=== PATIENT | female | born 1935 | race Caucasian/White ===

== ENCOUNTER 2019-02-11 15:00 | Observation (INO) | payer MEDICARE ==
[~2019-02-11] VITALS: Ht 149.9 cm; Wt 55.1 kg
[~2019-02-11 15:00] MED LIST: ALLEGRA ALLERG180 MG PO; AMLODIPINE BESYL5 MG PO; C-500500 MG PO; CALCIUM500 MG PO; COMBIVENT INH14.7 GM INH; COUMADIN5 MG PO; FORTEO2.4 ML SQ; LASIX20 MG PO; METOPROLOL SUCC25 MG PO; SIMVASTATIN20 MG PO; TEMAZEPAM15 MG PO; VITAMIN D32000 UNI1 PO; WARFARIN SODIU2.5 MG PO
[2019-02-11] MEDS ORDERED: MIDAZOLAM HCL 2 MG/2 ML VIAL ONE (15:44)
[2019-02-11] MEDS ORDERED: FENTANYL CITRATE/PF 100MCG/2 ML INJ ONE (15:44)
[2019-02-11 16:17] LABS: BASOPHILS % 0.4 % (0.0-1.0); EOSINOPHILS # (AUTO) 0.4 (0.0-0.4); EOSINOPHILS % 5.4 % (0.0-6.0); HEMATOCRIT 38.2 % (34.2-44.1); HEMOGLOBIN 12.6 g/dL (12.0-16.0); LYMPHOCYTES # (AUTO) 1.4 (1.0-3.2); LYMPHOCYTES % 18.7 % (18.0-39.1); MEAN CORPUSCULAR HEMOGLOBIN 31.5 pg (28-32); MEAN CORPUSCULAR VOLUME 95.5 fL (81-99); MONOCYTES # (AUTO) 0.9 (0.2-0.8); MONOCYTES % 12.6 % (4.4-11.3); NEUTROPHILS # (AUTO) 4.5 (2.1-6.9); NEUTROPHILS % 62.6 % (38.7-80.0); PLATELET COUNT 306 x10e3/uL (140-360); RED CELL DISTRIBUTION WIDTH 12.3 % (11.7-14.4)
[2019-02-11 16:22] LABS: INR 1.6; PROTHROMBIN TIME 19.7 seconds (11.9-14.5)
[2019-02-11 16:23] LABS: PARTIAL THROMBOPLASTIN TIME 43.9 seconds (23.8-35.5)
[2019-02-11 16:29] LABS: ALBUMIN/GLOBULIN RATIO 0.7 (0.8-2.0); ALKALINE PHOSPHATASE 109 IU/L (40-150); BLOOD UREA NITROGEN 12 mg/dL (7-26); BUN/CREATININE RATIO 14 (6-25); CALCIUM 9.7 mg/dL (8.4-10.2); CARBON DIOXIDE 26 mmol/L (22-29); CHLORIDE 99 mmol/L (98-107); CREATINE KINASE 40 IU/L (29-168); CREATININE, SERUM 0.87 mg/dL (0.57-1.11); EST GLOMERULAR FILTRATION RATE > 60 ML/MIN (60-); GLUCOSE 188 mg/dL (74-118); SODIUM 137 mmol/L (136-145)
[2019-02-11 16:39] LABS: ALANINE AMINOTRANSFERASE < 6 IU/L (0-55)
--- NOTE | 2019-02-11 16:54 | NUR ---
LATE ENTRY: PATIENT TO ROOM 9 AT 1520, PLACED IN GOWN AND ON MONITOR. PATIENT IN SVT WITH A RATE OF 220. VAGAL MANEUVERS UNSUCCESSFUL, MD NOTIFIED OF RATE. PATIENT ALERT AND ORIENTED, IN NO ACUTE DISTRESS. 1530 - EKG DONE AND GIVEN TO MD; 20G IV LINE STARTED TO LEFT AND RIGHT HANDS. BLOOD DRAWN AND LABELLED BEDSIDE 1535 - PATIENT PLACED ON LIFEPACK MONITOR WITH PADS 1543 - PATIENT GIVEN 2 MG VERSED 1544 - PATIENT GIVEN 50 MCG FENTANYL 1546 - PATIENT GIVEN SYNCHRONIZED SHOCK AT 100J; PATIENT CONVERTED TO SINUS RHYTHM WITH A RATE OF 83.
--- NOTE | 2019-02-11 17:04 | Diagnostic Imaging Report ---
EXAMINATION: CHEST SINGLE (PORTABLE) INDICATION: Chest pain COMPARISON: None FINDINGS: TUBES and LINES: EKG leads overlie the chest. LUNGS: The lung volumes are normal. No focal consolidation or pulmonary edema. PLEURA: No pleural effusion or pneumothorax. HEART AND MEDIASTINUM: The cardiomediastinal silhouette is normal in size and contour. Atherosclerotic calcifications of the thoracic aorta. Incidental note of tracheal calcification. BONES AND SOFT TISSUES: No acute fracture or dislocation. Postoperative findings of open reduction internal fixation of right proximal humerus. UPPER ABDOMEN: No free air under the diaphragm. IMPRESSION: No focal pneumonia or pulmonary edema. Signed by: Carlos Diaz MD on 02/11/2019 5:00 PM
--- OUTSIDE RECORDS SUMMARY | 2019-02-11 17:40 | XMS REPORT ---
Author Author [facility] Address Unknown Phone Unavailable Care Team Providers Care Manager Merchandising Name Role Phone Юлия ADKINS Unavailable Unavailable Problems This patient has no known problems. Allergies, Adverse Reactions, Alerts This patient has no known allergies or adverse reactions. Medications This patient has no known medications. Results Test Description Test Time Test Comments Text Results Atomic Results Result Comments CHEST SINGLE (PORTABLE) 2019-02-11 16:57:00 [place] [id number] Patient Name: SHWETA PARKS MR #: [id number] : 1935 Age/Sex: 83/F Req #: [id number] Adm Physician: Ordered by: IVIS ADKINS MD Report #: [id number] Location: ER Room/Bed: Procedure: [id number] DX/CHEST SINGLE (PORTABLE) Exam Date: 02/11/19 Exam Time: 1612 REPORT STATUS: Signed EXAMINATION: CHEST SINGLE (PORTABLE) I NDICATION: Chest pain COMPARISON: None FINDINGS: TUBES and LINES: EKG leads overlie the chest. LUNGS: The lung volumes are normal. No focal consolidation or pulmonary edema. PLEURA: No pleural effusion or pneumothorax. HEART AND MEDIASTINUM: The cardiomediastinal silhouette is normal in size and contour. Atherosclerotic calcifications of the thoracic aorta. Incidental note of tracheal calcification. BONES AND SOFT TISSUES: No acute fracture or dislocation. Postoperative findings of open reduction internal fixation of right proximal humerus. UPPER ABDOMEN: No free air under the diaphragm. IMPRESSION: No focal pneumonia or pulmonary edema. Signed by: John Diaz MD on 02/11/2019 5:00 PM Dictated By: JOHN DIAZ MD 99 Transcribed By: ASAD on 02/11/191699 COPY TO: IVIS ADKINS MD
[2019-02-11] MEDS ORDERED: METOPROLOL TARTRATE 25 MG TAB PO SCH (18:00)
[2019-02-11] MEDS: ASPIRIN 325 MG TAB EC PO SCH (18:06)
[2019-02-11] MEDS ORDERED: WARFARIN SOD 5 MG TAB PO ONE (19:00)
[2019-02-11] MEDS ORDERED: IPRATROPIUM BROMIDE 0.02% 2.5 ML NEB NEB PRN (19:00)
[2019-02-11] MEDS ORDERED: METOPROLOL TARTRATE 25 MG TAB PO ONE (19:00)
--- NOTE | 2019-02-11 19:51 | NUR ---
PT RESTING COMFORTABLY AT THIS TIME, DENIES PAIN/DISCOMFORT. VSS. CARE PLAN DISCUSSED WITH PT, CALL LIGHT WITHIN REACH, ENCOURAGED TO CALL FOR ASSISTANCE. AWAITING BED ON OBS UNIT.
--- NOTE | 2019-02-11 20:00 | NUR ---
patient is a new admit that arrived via stretcher. patient is awake and talking. patient has a telemetry box. patient has been assisted into the bed. bed is in the lowest position and call ty is within reach. will continue to monitor patient.
[2019-02-11 21:00] VITALS: BP 137/74
[2019-02-11] MEDS ORDERED: SIMVASTATIN 20 MG TAB PO SCH (21:00)
[2019-02-11] MEDS ORDERED: TEMAZEPAM 15 MG CAP PO SCH (21:00)
--- NOTE | 2019-02-11 21:11 | NUR ---
REPORT CALLED TO THUY HAMMOND. PT TAKEN OVER TO FLOOR ON TELE BOX NUMBER [phone].
[2019-02-12] VITALS: BP 139/63
[2019-02-12 02:23] LABS: CREATINE KINASE MB 4.2 ng/mL (0-5.0)
[2019-02-12 04:00] VITALS: BP 146/63
[2019-02-12 05:41] LABS: BASOPHILS % 0.4 % (0.0-1.0); EOSINOPHILS # (AUTO) 0.6 (0.0-0.4); EOSINOPHILS % 11.6 % (0.0-6.0); HEMATOCRIT 32.1 % (34.2-44.1); HEMOGLOBIN 10.1 g/dL (12.0-16.0); LYMPHOCYTES # (AUTO) 1.5 (1.0-3.2); LYMPHOCYTES % 29.4 % (18.0-39.1); MEAN CORPUSCULAR HGB CONC 31.5 g/dL (31-35); MONOCYTES # (AUTO) 0.7 (0.2-0.8); MONOCYTES % 13.5 % (4.4-11.3); NEUTROPHILS # (AUTO) 2.3 (2.1-6.9); NEUTROPHILS % 44.9 % (38.7-80.0); PLATELET COUNT 230 x10e3/uL (140-360); RED BLOOD COUNT 3.26 x10e6/uL (3.6-5.1); RED CELL DISTRIBUTION WIDTH 12.5 % (11.7-14.4)
[2019-02-12 05:45] LABS: MEAN CORPUSCULAR VOLUME 98.5 fL (81-99)
[2019-02-12 05:56] LABS: INR 2.06; PROTHROMBIN TIME 23.9 seconds (11.9-14.5)
--- NOTE | 2019-02-12 05:59 | NUR ---
CONSULTED PHYSICIAN NOTIFIED OF ROUTINE CONSULTATION.
[2019-02-12 06:02] LABS: ANION GAP 8.9 mmol/L (8-16); BLOOD UREA NITROGEN 8 mg/dL (7-26); BUN/CREATININE RATIO 13 (6-25); CALCIUM 8.6 mg/dL (8.4-10.2); CARBON DIOXIDE 30 mmol/L (22-29); CHLORIDE 105 mmol/L (98-107); EST GLOMERULAR FILTRATION RATE > 60 ML/MIN (60-); GLUCOSE 86 mg/dL (74-118); POTASSIUM 3.9 mmol/L (3.5-5.1); SODIUM 140 mmol/L (136-145)
[2019-02-12 06:06] LABS: CHOL/HDL RATIO 2.9 (3.0-3.6)
[2019-02-12 06:25] LABS: THYROID STIMULATING HORMONE 0.762 uIU/mL (0.350-4.940)
--- NOTE | 2019-02-12 07:12 | NUR ---
REPORT GIVEN TO DAY NURSE. PATIENT IS RESTING COMFORTABLY IN BED. BED IS IN LOWEST POSITION AND CALL LIGHT IS WITHIN REACH.
[2019-02-12 08:19] VITALS: BP 126/58
[2019-02-12 08:34] VITALS: BP 126/58
[2019-02-12] MEDS ORDERED: LORATADINE 10 MG TAB PO SCH (09:00)
[2019-02-12] MEDS ORDERED: METOPROLOL TARTRATE 50 MG TAB PO SCH (09:00)
[2019-02-12] MEDS ORDERED: NON-FORMULARY MEDICATION (Fexofenadine Hcl (Allegra Allergy) 180 MG) PO SCH (09:00)
[2019-02-12] MEDS ORDERED: TERIPARATIDE SC SCH ×2 (09:00)
[2019-02-12] MEDS: ASPIRIN 325 MG TAB EC PO SCH (09:12)
[2019-02-12 11:33] LABS: CREATINE KINASE MB 2.9 ng/mL (0-5.0)
[2019-02-12 11:37] VITALS: BP 106/53
[2019-02-12] MEDS ORDERED: DRONEDARONE 400 MG TAB PO SCH (12:45)
[2019-02-12] MEDS ORDERED: MULTAQ 400MG T400 MG PO ×2 (13:08→13:12)
--- NOTE | 2019-02-12 15:09 | Consultation ---
DATE OF CONSULTATION: 02/12/2019 Cardiology Consultation REASON FOR CONSULTATION: Paroxysmal atrial fibrillation. HISTORY OF PRESENT ILLNESS: Ms. Greene is an 83-year-old lady with past medical history of hypertension essential, COPD, former smoker, utilizing home oxygen at night, prior history of paroxysmal atrial fibrillation diagnosed about 10 years ago, who presents to this institution as a transfer from freestanding emergency room. The patient has been under a lot of stress within the last week, selling her house and moving to a senior assisted living facility. She has been having recurrent episodes of subjective palpitations and feeling that her heart is going to pound out of her chest. These episodes ranged from minutes to hours at a time and over the last three days have become increasingly frequent. Upon arrival at the freestanding emergency room, she was noted to be in atrial fibrillation with a rapid ventricular response with heart rates up to the 200s range and emergency room physician there due to instability did an emergent DC cardioversion, which restored her back into sinus rhythm. She is transferred here for further care and management. While here, she has been largely pain free. Serial biomarkers are strongly negative with troponin going from 0.028 to 0.035 to 0.030. She does report a remote history of cardiac catheterization back in 2012, where she was noted to have angiographically minimal disease and this was due to similar presentation with tachycardia-induced troponin leak. PAST MEDICAL HISTORY: 1. COPD. 2. Hypertension, essential. 3. Atrial fibrillation diagnosed 10 years ago, paroxysmal, on anticoagulant therapy. 4. History of heart catheterization in 2012 with minimal disease. PAST SURGICAL HISTORY: 1. History of hysterectomy. 2. History of right hip surgery. 3. History of right shoulder surgery. 4. History of ankle surgeries bilaterally. FAMILY HISTORY: Mother in her 30s of unknown causes. Father later on in life. The patient denies any premature family history of coronary artery disease. SOCIAL HISTORY: She is a former smoker, quit 20 years ago. Denies any alcohol or illicit drug use. ALLERGIES: INCLUDE CODEINE. HOME MEDICATIONS: Include Combivent inhaler daily, vitamin C supplement, calcium supplement, vitamin D supplement, Nella 180 mg daily, Lasix 20 mg daily, Toprol-XL 25 mg daily, Zocor 20 mg at bedtime, temazepam 7.5 mg at bedtime, Forteo 20 mcg daily, and Coumadin 5 mg alternating with 7.5 mg every other day. REVIEW OF SYSTEMS: GENERAL: Denies any fevers, chills, or any weight changes. HEENT: No headaches, visual complaints, sore throat, or stuffy nose. RESPIRATORY: Denies any pleuritic chest pain. Has exertional fatigue class 3 at baseline with nonproductive cough which is chronic. CARDIOVASCULAR: Palpitations as per HPI. GI: Denies any abdominal pain, bright red blood per rectum, melena, or hematemesis. HEMATOLOGY: Positive for easy bruising. : Denies any dysuria. Does have urinary frequency. MUSCULOSKELETAL: Has severe arthritis in all her extremities. ENDOCRINE: Denies any heat or cold intolerance. NEUROLOGIC: Denies any focal weakness, numbness, tingling, seizures, headache, history of TIA or strokes. Remainder of review of systems is negative, otherwise mentioned. PHYSICAL EXAMINATION: VITAL SIGNS: Height of 59 inches, weight of 121 pounds, BMI is 24.5. Temperature of 96.3, pulse of 57, respiratory rate of 18, blood pressure of 126/58, and O2 saturation 98% on 2 L nasal cannula. GENERAL: Well-nourished, well-developed, frail lady, who is currently in no apparent distress. HEENT: Normocephalic, atraumatic. Pupils are equal, round, and reactive to light. Extraocular movements are intact. Oropharynx is clear. NECK: No elevation of jugular venous pulsation. No carotid bruits. CARDIOVASCULAR: Bradycardic. Normal S1, S2. Soft 2/6 systolic murmur at left lower sternal border. LUNGS: With symmetric expansion with poor air flow throughout lung stone compatible with COPD type changes. ABDOMEN: Soft, nontender, nondistended. Normoactive bowel sounds. No hepatosplenomegaly. BACK: No costovertebral angle tenderness. EXTREMITIES: Warm with 2+ bilateral femoral pulses, 2+ bilateral pedal pulses, and 1+ bilateral radial pulses. NEUROLOGIC: Cranial nerves 2 through 12 are intact. Strength is 5/5 and she appears nonfocal. PSYCH: Normal fluent speech. Appropriate affect. No anxiety or delusions. LABORATORY DATA: White count of 5.1, hemoglobin of 10.1, hematocrit of 32.1, platelets of 238. Sodium 140, potassium 3.9, chloride 105, bicarb 30, BUN 8, creatinine 0.6, glucose of 86, calcium of 8.6. Troponin went from 0.028 to 0.035 to 0.030. Lipid profile shows HDL of 47, LDL of 77, triglycerides of 59. TSH 0.762. INR is 2.06. EKG reveals normal sinus rhythm, normal axis, left axis deviation, no significant ST-T wave changes. Telemetry review from event reveals atrial fibrillation with rapid ventricular response with heart rates in the 200s and successfully DC cardioverted back to sinus rhythm. DIAGNOSES: 1. Symptomatic palpitations secondary to paroxysmal atrial fibrillation status post emergent DC cardioversion by emergency room physician at an outside institution. 2. Hypertension, essential. 3. Hypercholesterolemia. 4. Chronic obstructive pulmonary disease, former smoker, on home oxygen at night. PLAN/RECOMMENDATIONS: 1. From a cardiovascular standpoint, we had an extremely long discussion in terms of her clinical condition, which is paroxysmal atrial fibrillation resulting in symptomatic palpitations with atrial fibrillation with rapid ventricular response. This does not confer the presence of any ischemic disease and has had definitive ischemic evaluation back in 2012 with a heart catheterization with minimal plaquing and has ruled out for PR with serial cardiac enzymes. 2. We will implement a rhythm control strategy due to her symptomatic state and attempt with Multaq 400 mg b.i.d. We are purposely trying to avoid amiodarone due to toxicity profile. 3. Her INR today is therapeutic at a goal between 2 to 3. We will continue anticoagulant therapy. 4. We have introduced the concept that the patient may have also underlying tachybrady syndrome and is to monitor for episodes of slow heart rate as an outpatient. 5. Aggressive risk factor modification, medical therapy. 6. For the time being, I cannot find any particular provokers for her recent recurrent spells outside of perhaps some emotional stresses related to recent moving from her home to a long term facility. 7. Okay from a cardiovascular standpoint to go when okay by primary team. MD BLANE Hansen/FLORECITA /[id number]
--- NOTE | 2019-02-13 05:02 | Discharge Summary ---
PRIMARY CARE DOCTOR: Dr. Del Hampton. SECOND HELPER: Dr. Hugo, Cardiology. PROCEDURES/STUDIES PERFORMED: Cardioversion. FINAL DIAGNOSES: Atrial fibrillation with rapid ventricular response. SECONDARY DIAGNOSES: 1. Possible chronic obstructive pulmonary disease. 2. Hypertension. 3. Parathyroid disorder. 4. Dyslipidemia. HISTORY: Per [facility] HOSPITAL COURSE: The patient was shocked in the ER and converted back to sinus. The patient was monitored overnight, continued to be in sinus. An initial INR was 1.6, on the date of admission is 2.06. The patient's TSH is normal. The patient was evaluated by Cardiology, who recommended adding Multaq to the regimen and if this does not help then she will need to see in bottom liquor attendant, ict project manager. I have relayed this message to her primary care doctor, whom she will follow up in a week. The patient was seen and examined today. CONDITION ON DISCHARGE: Improved. DISCHARGE MEDICATIONS: Please see medication reconciliation form. MD BRANT Jacob/FLORECITA /[id number] cc: [facility]
== END 2019-02-12 15:00 | disposition home or self-care (01) ==
LOC: ER 15:00 → ERHOLD 17:26 → IMCU 21:49
PROVIDERS: ADMIT Internal Medicine; ATTEND Internal Medicine
DX: I48.0 Paroxysmal atrial fibrillation (principal); R00.2 Palpitations; J44.9 Chronic obstructive pulmonary disease, unspecified; I25.2 Old myocardial infarction; I47.1 Supraventricular tachycardia; Z88.5 Allergy status to narcotic agent; I10 Essential (primary) hypertension; Z87.891 Personal history of nicotine dependence; Z79.01 Long term (current) use of anticoagulants; E78.00 Pure hypercholesterolemia, unspecified; E21.5 Disorder of parathyroid gland, unspecified; E78.5 Hyperlipidemia, unspecified
CPT/HCPCS: 36415; 71045; 80048; 80053; 80061; 82550 ×2; 82553 ×2; 84443; 84484 ×2; 85025 ×2; 85610 ×2; 85730; 92960; 93005; 93306; 99284; G0378 ×2; J2250; J3010

== ENCOUNTER 2019-04-17 08:32 | Inpatient (IN) | payer MEDICARE ==
[~2019-04-17] VITALS: Ht 147.3 cm; Wt 51.7 kg
[2019-04-17] VITALS (8 sets, daily range): BP systolic 101–150; BP diastolic 72–125
[~2019-04-17 08:32] MED LIST changes: +MULTAQ 400MG T400 MG PO
--- OUTSIDE RECORDS SUMMARY | 2019-04-17 08:35 | XMS REPORT | Clinical Summary ---
Author Author Lebron Druze Organization [facility] Address Unknown Phone Unavailable Care Team Providers Care Commercial Escrow Officer Name Role Phone Del Hampton MD PCP Allergies Comments Active Allergy Reactions Severity Noted Date Levofloxacin 02/19/2019 Medications End Date Status Medication Sig Dispensed Refills Start Date 02/22/2019 acetaminophen-codeine Take 1 tablet 10 tablet 0 (TYLENOL WITH CODEINE #3) by mouth 9 300-30 mg per tablet every 8 (eight) hours as needed for moderate pain for up to 3 days. Active Problems Not on file Encounters Care Team Description Date Type Specialty Mian Carlton MD Fall, initial encounter (Primary Dx); Injury of head, initial encounter; Right hip pain; Hypertensive urgency; Hip strain, right, initial encounter; Contusion of forehead, initial encounter 02/19/2019 Emergency Emergency Medicine - 02/20/2019 after 04/16/2018 Social History Date Tobacco Use Types Packs/Day Years Used Never Smoker Smokeless Tobacco: Never Used Drinks/Week oz/Week Comments Alcohol Use Never Alcohol Habits Answer Date Recorded How often do you have a drink containing alcohol? Never 02/19/2019 How many drinks containing alcohol do you have on Not asked a typical day when you are drinking? How often do you have six or more drinks on one Not asked occasion? Sex Assigned at Date Recorded Not on file Industry Job Start Date Occupation Not on file Not on file Not on file Travel End Travel History Travel Start No recent travel history available. Last Filed Vital Signs Reading Time Taken Comments Vital Sign 149/63 02/20/2019 12:07 AM CDT Blood Pressure 60 02/20/2019 12:07 AM CDT Pulse 36.8 C (98.2 F) 02/20/2019 12:07 AM CDT Temperature 19 02/20/2019 12:07 AM CDT Respiratory Rate 94% 02/20/2019 12:07 AM CDT Oxygen Saturation - - Inhaled Oxygen Concentration 53.1 kg (117 lb) 02/19/2019 9:15 PM CDT Weight 149.9 cm (4' 11") 02/19/2019 9:15 PM CDT Height 23.63 02/19/2019 9:15 PM CDT Body Mass Index Plan of Treatment Health Maintenance Due Date Last Done Comments SHINGLES VACCINES (#1) 1984 INFLUENZA VACCINE 03/04/2019 08/13/2018, 05/15/2016, 07/12/2015, Additional history exists 65+ PNEUMOCOCCAL VACCINE Completed 01/02/2015, 10/04/2013 Procedures Comments Procedure Name Priority Date/Time Associated Diagnosis ESTIMATED GFR STAT 02/19/2019 10:16 PM CDT COMPREHENSIVE METABOLIC STAT 02/19/2019 PANEL 10:16 PM CDT HC COMPLETE BLD COUNT STAT 02/19/2019 W/AUTO DIFF 10:16 PM CDT PARTIAL THROMBOPLASTIN STAT 02/19/2019 TIME (PTT) 10:16 PM CDT PROTHROMBIN TIME WITH INR STAT 02/19/2019 10:[address] PELVIS WO CONTRAST STAT 02/19/2019 10:[address] HEAD WO CONTRAST STAT 02/19/2019 10:[address] CERVICAL SPINE WO STAT 02/19/2019 CONTRAST 10:14 PM CDT XR HIP 2-3 VIEWS RIGHT STAT 02/19/2019 9:50 PM CDT XR CHEST 1 VW PORTABLE STAT 02/19/2019 9:50 PM CDT ECG 12-LEAD STAT 02/19/2019 9:21 PM CDT ECG ED PRELIMINARY Routine 02/19/2019 INTERPRETATION 9:19 PM CDT after 04/16/2018 Results * Estimated GFR (02/19/2019 10:16 PM CDT) [facility] Estimated GFR 68 mL/min/1.73 m2 [place] Comment: GLENIS BOSWELL [facility] rpretation G1 >=90 Normal or high G2 60-89Mildly decreased [id number] Mildly to moderately decreased F6c87-51 Moderately to severely decreased G4 15-29Severely decreased G5 <15Kidney failure The eGFR was calculated using the Chronic Kidney Disease Epidemiology Collaboration (CKD-EPI) equation. Interpretation is based on recommendations of the National Kidney Foundation-Kidney Disease Outcomes Quality Initiative (NKF-KDOQI) published in 2014. Specimen Plasma specimen Performing Organization Address [facility] Phone Number [address] [place] [address] * Partial thromboplastin time, activated (02/19/2019 10:16 PM CDT) [facility] PTT 48.8 (H) 23.0 - 36.0 sec [place] Comment: GLENIS BOSWELL PTT therapeutic range for [facility] unfractionated heparin is 61.0-112.0 seconds which corresponds to Anti-Xa 0.3-0.7 U/ml. Specimen Blood Performing Organization Address [facility] Phone Number [facility] DEPARTMENT [address] [place] [address] PATHOLOGY [facility] [place] [address] * Prothrombin time with INR (02/19/2019 10:16 PM CDT) [facility] Prothrombin 26.7 (H) 11.5 - 14.5 sec [place] time GLENIS BOSWELL [facility] [place] INR 2.5 [place] Comment: GLENIS BOSWELL The International Normalized [facility] [place] Ratio (INR) is a therapeutic monitoring tool for patients who are stable on oral anticoagulant therapy. An INR of 2.0-3.0 is suggested for deep vein thrombosis/pulmonary embolism. Specimen Blood Performing Organization Address [facility] Phone Number [facility] DEPARTMENT [address] [place] [address] PATHOLOGY AND [facility] [place] [address] * CBC with platelet and differential (02/19/2019 10:16 PM CDT) WBC 11.12 (H) 4.50 - 11.00 k/uL [facility] RBC 3.93 (L) 4.20 - 5.50 m/uL [facility] HGB 12.1 12.0 - 16.0 g/dL [facility] HCT 39.2 37.0 - 47.0 % [facility] MCV 99.7 82.0 - 100.0 fL [facility] MCH 30.8 27.0 - 34.0 pg [facility] MCHC 30.9 (L) 31.0 - 37.0 g/dL [facility] RDW - SD 47.4 37.0 - 55.0 fL [facility] MPV 11.0 8.8 - 13.2 fL [facility] Platelet count 241 150 - 400 k/uL [facility] Nucleated RBC 0.00 /100 WBC [facility] Neutrophils 79.3 (H) 39.0 - 69.0 % [facility] Lymphocytes 8.1 (L) 25.0 - 45.0 % [facility] Monocytes 6.7 0.0 - 10.0 % [facility] Eosinophils 4.7 0.0 - 5.0 % [facility] Basophils 0.4 0.0 - 1.0 % [facility] Specimen Blood Performing Organization Address City/State/Zipcode [place] [address] [place] [address] PATHOLOGY AND GENOMIC MEDICINE [facility] [address] [place] [address] * Comprehensive metabolic panel (02/19/2019 10:16 PM CDT) Sodium 143 135 - 148 mEq/L [facility] Potassium 4.7 3.5 - 5.0 mEq/L [facility] Chloride 99 98 - 112 mEq/L [facility] CO2 29 24 - 31 mEq/L [facility] Anion gap 15@ANIO 7 - 15 mEq/L [facility] BUN 19 8 - 23 mg/dL [facility] Creatinine 0.80 0.50 - 0.90 mg/dL [facility] Glucose 109 (H) 65 - 99 mg/dL [facility] Calcium 9.6 8.8 - 10.2 mg/dL [facility] Protein 7.4 6.3 - 8.3 g/dL [place] Comment: [facility] 4.6-7.0 g/dL 1 week 4.4-7.6 g/dL 7 months-1year 5.1-7.3 g/dL 1-2 years5.6-7 .5 g/dL >3 years6.0-8 .0 g/dL 18-150 6.3-8.3 g/dL Albumin 3.6 3.5 - 5.0 g/dL [facility] A/G ratio 0.9 0.7 - 3.8 [facility] Alkaline 116 (H) 35 - 104 U/L [place] phosphatase [facility] AST 27 10 - 35 U/L [facility] ALT 22 5 - 50 U/L [facility] Total bilirubin 0.6 0.0 - 1.2 mg/dL [facility] Specimen Plasma specimen Performing Organization Address City/State/Zipcode Phone [place] [address] [place] [address] PATHOLOGY AND GENOMIC MEDICINE [facility] [address] * CT Pelvis Wo Contrast (02/19/2019 10:14 PM CDT) Specimen Narrative Performed At EXAMINATION:CT PELVIS WO CONTRAST [facility] CLINICAL HISTORY:fallR hip pain TECHNIQUE:Multiple axial images of the pelvis were obtained without intravenous contrast. The lack of intravenous contrast reduces sensitivity of detecting solid organ disease. Sagittal and coronal computerized reformatted images were also obtained. CT imaging was performed with iterative reconstruction techniques and/or automated exposure control to reduce radiation dose. COMPARISON:To a plain film from earlier in the day IMPRESSION: 1.The bones are moderately osteopenic. Internal fixation screws are noted across the left proximal femur. 2.There is no evidence of acute fracture or dislocation. [facility]-[id number] Procedure Note Interface, Radiology Results Incoming - 02/19/2019 10:19 PM CDT EXAMINATION: CT PELVIS WO CONTRAST CLINICAL HISTORY: fall R hip pain TECHNIQUE: Multiple axial images of the pelvis were obtained without intravenous contrast. The lack of intravenous contrast reduces sensitivity of detecting solid organ disease. Sagittal and coronal computerized reformatted images were also obtained. CT imaging was performed with iterative reconstruction techniques and/or automated exposure control to reduce radiation dose. COMPARISON: To a plain film from earlier in the day IMPRESSION: 1. The bones are moderately osteopenic. Internal fixation screws are noted across the left proximal femur. 2. There is no evidence of acute fracture or dislocation. [facility]-[id number] Performing Organization Address City/State/Zipcode Phone Number [facility] [address] [place] [address] * CT Head Wo Contrast (02/19/2019 10:14 PM CDT) Specimen Narrative Performed At EXAMINATION:CT HEAD WO CONTRAST [facility] CLINICAL HISTORY:fallhead injuryon coumadin COMPARISON:CT head 07/14/2014 TECHNIQUE: Noncontrast head CT performed using radiation dose reduction techniques.Technical factors are evaluated and adjusted to ensure appropriate moderation of exposure.Automated dose management technology is applied to adjust radiation exposure while achieving a diagnostic quality image. FINDINGS: No evidence of acute intracranial hemorrhage, mass, mass effect, midline shift, or acute infarct. Ventricles and sulci are normal in appearance for age.Mild suspected chronic microvascular ischemic changes within the supratentorial white matter. Basal cisterns are clear. Calvarium is intact. Arteriosclerosis of the cavernous and paraclinoid internal carotid arteries and V4 segments of the vertebral arteries. Status post bilateral lens extractions. No significant sinus inflammatory changes.Mastoid air cells are clear. IMPRESSION: 1. No CT evidence of acute intracranial abnormality. [id number] Procedure Note [facility], Radiology Results Incoming - 02/19/2019 10:25 PM CDT EXAMINATION: CT HEAD WO CONTRAST CLINICAL HISTORY: fall head injury on coumadin COMPARISON: CT head 07/14/2014 TECHNIQUE: Noncontrast head CT performed using radiation dose reduction techniques. Technical factors are evaluated and adjusted to ensure appropriate moderation of exposure. Automated dose management technology is applied to adjust radiation exposure while achieving a diagnostic quality image. FINDINGS: No evidence of acute intracranial hemorrhage, mass, mass effect, midline shift, or acute infarct. Ventricles and sulci are normal in appearance for age. Mild suspected chronic microvascular ischemic changes within the supratentorial white matter. Basal cisterns are clear. Calvarium is intact. Arteriosclerosis of the cavernous and paraclinoid internal carotid arteries and V4 segments of the vertebral arteries. Status post bilateral lens extractions. No significant sinus inflammatory changes. Mastoid air cells are clear. IMPRESSION: 1. No CT evidence of acute intracranial abnormality. [id number] Performing Organization Address City/State/Zipcode Phone Number [facility] [address] [place] [address] * CT Cervical Spine Wo Contrast (02/19/2019 10:14 PM CDT) Specimen Narrative Performed At EXAM: CT CERVICAL SPINE WO CONTRAST [facility] CLINICAL HISTORY: fall TECHNIQUE: Noncontrast enhanced imaging through the cervical spine was performed with coronal and sagittal reconstructed images. CT scans are performed using radiation dose reduction techniques (iterative reconstruction and/or automated exposure control). Technical factors are evaluated and adjusted to ensure appropriate moderation of exposure. Automated dose management technology is applied to adjust radiation exposure while achieving a diagnostic quality image. COMPARISON:CT brain, same day FINDINGS: There is straightening of cervical lordotic curvature secondary to patient positioning and mild discogenic degenerative changes to be further discussed below. Alignment and vertebral body height are otherwise within normal limits. There is no evidence of acute fracture, suspicious osteolytic lesion, or suspicious osteoblastic lesion. Evaluation of the disc levels is as follows: C2-C3: Less than 2 mm anterolisthesis of C2 on C3 with uncovering this. No significant thecal sac stenosis. Minimal/mild bilateral foraminal narrowing. C3-C4: No significant thecal sac or foraminal stenosis. C4-C5: Disc height loss, mild bilateral uncovertebral hypertrophy, mild to moderate right and minimal left facet hypertrophy. Moderate to advanced right and minimal left foraminal narrowing. No significant thecal sac stenosis. C5-C6: Disc height loss, prominent bilateral uncovertebral hypertrophy, and severe bilateral foraminal narrowing. Dorsal osteophyte spurring with minimal thecal sac stenosis (proximal 9.5 mm midline AP diameter, axial image 63, series 12). C6-C7: Disc height loss, prominent bilateral uncovertebral hypertrophy, and severe bilateral foraminal narrowing. Dorsal slight spurring with mild thecal sac stenosis (approximately 9 mm midline AP diameter). C7-T1: No acute thecal sac stenosis or foraminal narrowing. Visualized paraspinal soft tissues are unremarkable. No large, irregular thyroid nodule seen. Visualized lung apices are without evidence of acute focal pneumonia or concerning nodule. IMPRESSION: No acute osseous abnormality of the cervical spine. Mild cervical spondylosis with chronic mild thecal sac stenosis and severe foraminal narrowing at the C5-C6 and C6 C6-7 levels as described above. No acute thecal sac stenosis or foraminal narrowing. [facility]-[id number] Procedure Note [facility], Radiology Results - 02/19/2019 10:32 PM CDT EXAM: CT CERVICAL SPINE WO CONTRAST CLINICAL HISTORY: fall TECHNIQUE: Noncontrast enhanced imaging through the cervical spine was performed with coronal and sagittal reconstructed images. CT scans are performed using radiation dose reduction techniques (iterative reconstruction and/or automated exposure control). Technical factors are evaluated and adjusted to ensure appropriate moderation of exposure. Automated dose management technology is applied to adjust radiation exposure while achieving a diagnostic quality image. COMPARISON: CT brain, same day FINDINGS: There is straightening of cervical lordotic curvature secondary to patient positioning and mild discogenic degenerative changes to be further discussed below. Alignment and vertebral body height are otherwise within normal limits. There is no evidence of acute fracture, suspicious osteolytic lesion, or suspicious osteoblastic lesion. Evaluation of the disc levels is as follows: C2-C3: Less than 2 mm anterolisthesis of C2 on C3 with uncovering this. No significant thecal sac stenosis. Minimal/mild bilateral foraminal narrowing. C3-C4: No significant thecal sac or foraminal stenosis. C4-C5: Disc height loss, mild bilateral uncovertebral hypertrophy, mild to moderate right and minimal left facet hypertrophy. Moderate to advanced right and minimal left foraminal narrowing. No significant thecal sac stenosis. C5-C6: Disc height loss, prominent bilateral uncovertebral hypertrophy, and severe bilateral foraminal narrowing. Dorsal osteophyte spurring with minimal thecal sac stenosis (proximal 9.5 mm midline AP diameter, axial image 63, series 12). C6-C7: Disc height loss, prominent bilateral uncovertebral hypertrophy, and severe bilateral foraminal narrowing. Dorsal slight spurring with mild thecal sac stenosis (approximately 9 mm midline AP diameter). C7-T1: No acute thecal sac stenosis or foraminal narrowing. Visualized paraspinal soft tissues are unremarkable. No large, irregular thyroid nodule seen. Visualized lung apices are without evidence of acute focal pneumonia or concerning nodule. IMPRESSION: No acute osseous abnormality of the cervical spine. Mild cervical spondylosis with chronic mild thecal sac stenosis and severe foraminal narrowing at the C5- C6 and C6 C6-7 levels as described above. No acute thecal sac stenosis or foraminal narrowing. [facility]-[id number] Performing Organization Address [facility] Phone Number [facility] [address] [place] [address] * XR Hip 2-3 View Right (02/19/2019 9:50 PM CDT) Specimen Narrative Performed At EXAMINATION:XR HIP 2-3 VIEWS RIGHT [facility] CLINICAL HISTORY:fallR hip pain COMPARISON:None. IMPRESSION: No evidence of acute right hip fracture, dislocation, or joint effusion. 3 screws within the right proximal femur, without apparent radiographic complication. Bone mineralization is decreased. Soft tissues are unremarkable. [facility]-[id number] Procedure Note Interface, Radiology Results Incoming - 02/19/2019 9:56 PM CDT EXAMINATION: XR HIP 2-3 VIEWS RIGHT CLINICAL HISTORY: fall R hip pain COMPARISON: None. IMPRESSION: No evidence of acute right hip fracture, dislocation, or joint effusion. 3 screws within the right proximal femur, without apparent radiographic complication. Bone mineralization is decreased. Soft tissues are unremarkable. [facility]-[id number] Performing Organization Address [facility] Phone Number [facility] [address] [place] [address] * XR Chest 1 Vw Portable (02/19/2019 9:50 PM CDT) Specimen Narrative Performed At EXAMINATION:XR CHEST 1 VW PORTABLE [facility] CLINICAL HISTORY:SOB COMPARISON:To previous study from 08/09/2014 IMPRESSION: Kyphoplasty is noted involving a midthoracic vertebral body. Cardiomediastinal silhouette is prominent pulmonary vessels are prominent. Some mild basilar congestive changes may be developing. [facility]-[id number] Procedure Note Interface, Radiology Results Incoming - 02/19/2019 9:54 PM CDT EXAMINATION: XR CHEST 1 VW PORTABLE CLINICAL HISTORY: SOB COMPARISON: To previous study from 08/09/2014 IMPRESSION: Kyphoplasty is noted involving a midthoracic vertebral body. Cardiomediastinal silhouette is prominent pulmonary vessels are prominent. Some mild basilar congestive changes may be developing. [facility]-[id number] Performing Organization Address [facility] Phone Number [facility] [address] [place] [address] * ECG 12 lead (02/19/2019 9:21 PM CDT) Ventricular 63 [facility] rate Atrial rate 63 [facility] MI interval 176 [facility] QRSD interval 86 [facility] QT interval 448 [facility] QTC interval 458 [facility] P axis 1 99 [facility] QRS axis 1 -27 [facility] T wave axis 74 [facility] EKG impression Sinus rhythm with marked sinus [facility] arrhythmia-Nonspecific ST abnormality-Abnormal ECG-In automated comparison with ECG of 09-AUG-2014 12:59,-No significant change was found- Specimen Narrative Performed At Performing Organization Address [facility] Phone Number [facility] [address] [place] [address] * ECG ED Preliminary Interpretation - Not an Order (02/19/2019 9:19 PM CDT) Narrative Performed At Mian Carlton MD 02/20/2019 12:23 AM ECG ED Preliminary Interpretation - Not an Order Performed by: Mian Carlton MD Authorized by: Mian Carlton MD ECG reviewed by ED Physician in the absence of a elevator starter: yes Interpretation: Interpretation: normal Quality: Tracing quality:Limited by artifact Rate: ECG rate:63 ECG rate assessment: normal Rhythm: Rhythm: sinus rhythm Ectopy: Ectopy: none QRS: QRS axis:Left QRS intervals:Normal Conduction: Conduction: normal ST segments: ST segments:Normal T waves: T waves: inverted Inverted:AVR and V1 Other findings: Other findings: prolonged qTc interval after 04/16/2018 Insurance Type Payer Benefit Subscriber ID Effective Phone Address Plan / Dates Group O [employer] [facility] xxxxxxxxxxx [id number] CHERRY MORA Advance Directives For more information, please contact: [phone] Patient Transit Specialist Explanation Type Date Recorded Advance Directives, 02/19/2019 10:21 PM Living Will and Medical Power of Patrol Supervisor
[2019-04-17] MEDS ORDERED: METOPROLOL TARTRATE INJ 1 MG/ML VIAL ONE (08:52)
[2019-04-17] MEDS ORDERED: METOPROLOL TARTRATE INJ 1 MG/ML VIAL IV ONE ×3 (09:00→10:30)
[2019-04-17] MEDS ORDERED: ALBUTEROL/IPRATROPIUM 3 ML NEB ONE (09:01)
[2019-04-17 09:19] LABS: BASOPHILS % 0.5 % (0.0-1.0); EOSINOPHILS # (AUTO) 0.2 (0.0-0.4); EOSINOPHILS % 2.1 % (0.0-6.0); HEMATOCRIT 36.7 % (34.2-44.1); HEMOGLOBIN 11.3 g/dL (12.0-16.0); LYMPHOCYTES # (AUTO) 0.7 (1.0-3.2); LYMPHOCYTES % 8.7 % (18.0-39.1); MEAN CORPUSCULAR HEMOGLOBIN 30.5 pg (28-32); MEAN CORPUSCULAR HGB CONC 30.8 g/dL (31-35); MEAN CORPUSCULAR VOLUME 99.2 fL (81-99); MONOCYTES # (AUTO) 0.6 (0.2-0.8); MONOCYTES % 8.5 % (4.4-11.3); NEUTROPHILS % 79.8 % (38.7-80.0); PLATELET COUNT 276 x10e3/uL (140-360); RED CELL DISTRIBUTION WIDTH 14.6 % (11.7-14.4)
[2019-04-17 09:28] LABS: INR 1.94; PROTHROMBIN TIME 22.8 seconds (11.9-14.5)
--- NOTE | 2019-04-17 09:28 | Diagnostic Imaging Report ---
EXAMINATION: CHEST SINGLE (PORTABLE) INDICATION: ^SOB CP ^[id number] ^[id number] COMPARISON: Chest radiograph 02/11/2019 FINDINGS: AP view TUBES and LINES: None. LUNGS: Lungs are well inflated. Diffuse bilateral pulmonary edema. Bibasilar atelectasis. PLEURA: Small bilateral, right greater than left, pleural effusions. No pneumothorax. HEART AND MEDIASTINUM: Stable mild enlargement of the cardiac silhouette. Atherosclerotic calcifications of the aortic arch. BONES AND SOFT TISSUES: Status post fixation of the right humerus. Soft tissues are unremarkable. UPPER ABDOMEN: No free air under the diaphragm. IMPRESSION: Diffuse bilateral pulmonary edema. Signed by: Dr. Rebeca Mckeon M.D. on 04/17/2019 9:24 AM
[2019-04-17] MEDS ORDERED: IPRATROPIUM BROMIDE 0.02% 2.5 ML NEB NEB ONE (09:30)
[2019-04-17] MEDS ORDERED: LEVALBUTEROL HCL SOLN NEBU 0.63 MG/3 ML NEB INH ONE (09:30)
[2019-04-17] MEDS ORDERED: METOPROLOL TARTRATE 50 MG TAB PO ONE (09:30)
[2019-04-17 09:37] LABS: ALBUMIN 3.4 g/dL (3.5-5.0); ALBUMIN/GLOBULIN RATIO 0.8 (0.8-2.0); ANION GAP 14.6 mmol/L (8-16); CALCIUM 9.9 mg/dL (8.4-10.2); CREATININE, SERUM 1.07 mg/dL (0.57-1.11); MAGNESIUM 2.4 MG/DL (1.3-2.1); POTASSIUM 4.6 mmol/L (3.5-5.1)
[2019-04-17 09:57] LABS: CREATINE KINASE MB 2.2 ng/mL (0-5.0); THYROID STIMULATING HORMONE 0.967 uIU/mL (0.350-4.940)
[2019-04-17] MEDS: DRONEDARONE 400 MG TAB PO SCH ×2 (10:37→17:18)
[2019-04-17] MEDS ORDERED: AMIODARONE HCL 150MG 100 ML ONE (10:44)
[2019-04-17] MEDS ORDERED: AMIODARONE HCL 150 MG/100 ML BAG IV ONE (10:45)
[2019-04-17] MEDS ORDERED: AMIODARONE HCL 100 ML IV ONE (11:00)
[2019-04-17] MEDS ORDERED: DIGOXIN INJ 0.25 MG/ML 2 ML AMP IV ONE (11:00)
[2019-04-17] MEDS ORDERED: MORPHINE SULFATE 2 MG/ML SYR 1ML IV PRN (11:15)
[2019-04-17] MEDS ORDERED: DIGOXIN 0.25 MG TAB PO ONE (11:15)
[2019-04-17] MEDS ORDERED: AMIODARONE 900MG 500 ML IV ONE (11:15)
[2019-04-17] MEDS ORDERED: NITROGLYCERIN 0.4 MG SUBL SL PRN (11:15)
--- OUTSIDE RECORDS SUMMARY | 2019-04-17 11:26 | XMS REPORT | Clinical Summary ---
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 Interpretation is based on recommendations of the National Kidney Foundation-Kidney Disease Outcomes Quality Initiative (NKF-KDOQI) published in 2014. Specimen Plasma specimen Performing Organization Address [facility] Phone Number [address] [place] [address] * Partial thromboplastin time, activated (02/19/2019 10:16 PM CDT) [facility] PTT 48.8 (H) 23.0 - 36.0 sec [place] Comment: GLENIS BOSWELL PTT therapeutic range for [facility] unfractionated heparin is 61.0-112.0 seconds which corresponds to Anti-Xa 0.3-0.7 U/ml. Specimen Blood Performing Organization Address [facility] Phone Number [facility] [address] [place] [address] PATHOLOGY [facility] [place] [address] * Prothrombin time with INR (02/19/2019 10:16 PM CDT) [facility] Prothrombin 26.7 (H) 11.5 - 14.5 sec [place] time GLEN[place] BOSWELL [facility] INR 2.5 [place] Comment: GLENIS BOSWELL The International Normalized [facility] Ratio (INR) is a therapeutic monitoring tool for patients who are stable on oral anticoagulant therapy. An INR of 2.0-3.0 is suggested for deep vein thrombosis/pulmonary embolism. Specimen Blood Performing Organization Address [facility] Phone Number [facility] DE[facility] [address] [place] [address] PATHOLOGY AND [facility] [place] [address] * CBC with platelet and differential (02/19/2019 10:16 PM CDT) WBC 11.12 (H) 4.50 - 11.00 k/uL [facility] RBC 3.93 (L) 4.20 - 5.50 m/uL [facility] HGB 12.1 12.0 - 16.0 g/dL [facility] HCT 39.2 37.0 - 47.0 % [facility] MCV 99.7 82.0 - 100.0 fL [facility] MCH 30.8 27.0 - 34.0 pg [facility] MCHC 30.9 (L) 31.0 - 37.0 g/dL [facility] RDW - SD 47.4 37.0 - 55.0 fL [facility] MPV 11.0 8.8 - 13.2 fL [facility] Platelet count 241 150 - 400 k/uL [facility] Nucleated RBC 0.00 /100 WBC [facility] Neutrophils 79.3 (H) 39.0 - 69.0 % [facility] Lymphocytes 8.1 (L) 25.0 - 45.0 % [facility] Monocytes 6.7 0.0 - 10.0 % [facility] Eosinophils 4.7 0.0 - 5.0 % [facility] Basophils 0.4 0.0 - 1.0 % [facility] Specimen Blood Performing Organization Address City/State/Zipcode [place] [address] [place] [address] PATHOLOGY AND GENOMIC MEDICINE [facility] [address] [address] * Comprehensive metabolic panel (02/19/2019 10:16 PM CDT) Sodium 143 135 - 148 mEq/L [facility] Potassium 4.7 3.5 - 5.0 mEq/L [facility] Chloride 99 98 - 112 mEq/L [facility] CO2 29 24 - 31 mEq/L [facility] Anion gap 15@ANIO 7 - 15 mEq/L [facility] BUN 19 8 - 23 mg/dL [facility] Creatinine 0.80 0.50 - 0.90 mg/dL [facility] Glucose 109 (H) 65 - 99 mg/dL [facility] Calcium 9.6 8.8 - 10.2 mg/dL [facility] Protein 7.4 6.3 - 8.3 g/dL [place] Comment: [facility] 4.6-7.0 g/dL 1 week 4.4-7.6 g/dL 7 months-1year 5.1-7.3 g/dL 1-2 years5.6-7 .5 g/dL >3 years6.0-8 .0 g/dL 18-150 6.3-8.3 g/dL Albumin 3.6 3.5 - 5.0 g/dL [facility] A/G ratio 0.9 0.7 - 3.8 [facility] Alkaline 116 (H) 35 - 104 U/L [place] phosphatase [facility] AST 27 10 - 35 U/L [facility] ALT 22 5 - 50 U/L [facility] Total bilirubin 0.6 0.0 - 1.2 mg/dL [facility] Specimen Plasma specimen Performing Organization Address City/State/Zipcode [place] [address] [place] [address] PATHOLOGY AND GENOMIC MEDICINE [facility] [address] * CT Pelvis Wo Contrast (02/19/2019 [...] no evidence of acute fracture or dislocation. [facility]-[id number] Procedure Note Interface, Radiology Results Incoming - [...] no evidence of acute fracture or dislocation. [facility]-[id number] Performing Organization Address City/State/Zipcode Phone Number [facility] [address] [place] [address] * CT Head Wo Contrast (02/19/2019 10:14 PM CDT) Specimen Narrative Performed At EXAMINATION:CT HEAD WO CONTRAST [facility] CLINICAL HISTORY:fallhead injuryon coumadin COMPARISON:CT head 07/14/2014 [...] No CT evidence of acute intracranial abnormality. [id number] Procedure Note [facility], Radiology Results Incoming - 02/19/2019 10:25 [...] No CT evidence of acute intracranial abnormality. [id number] Performing Organization Address City/State/Zipcode Phone Number [facility] [address] [place] [address] * CT Cervical Spine Wo Contrast (02/19/2019 [...] acute thecal sac stenosis or foraminal narrowing. [facility]-[id number] Procedure Note [facility], Radiology Results - 02/19/2019 10:32 PM [...] acute thecal sac stenosis or foraminal narrowing. [facility]-[id number] Performing Organization Address [facility] Phone Number [facility] [address] [place] [address] * XR Hip 2-3 View Right (02/19/2019 9:50 PM CDT) Specimen Narrative Performed At EXAMINATION:XR HIP 2-3 VIEWS RIGHT [facility] CLINICAL HISTORY:fallR hip pain COMPARISON:None. IMPRESSION: No evidence of acute right hip fracture, dislocation, or joint effusion. 3 screws within the right proximal femur, without apparent radiographic complication. Bone mineralization is decreased. Soft tissues are unremarkable. [facility]-[id number] Procedure Note Interface, Radiology Results Incoming - 02/19/2019 9:56 PM CDT EXAMINATION: XR HIP 2-3 VIEWS RIGHT CLINICAL HISTORY: fall R hip pain COMPARISON: None. IMPRESSION: No evidence of acute right hip fracture, dislocation, or joint effusion. 3 screws within the right proximal femur, without apparent radiographic complication. Bone mineralization is decreased. Soft tissues are unremarkable. [facility]-[id number] Performing Organization Address [facility] Phone Number [facility] [address] [place] [address] * XR Chest 1 Vw Portable (02/19/2019 9:50 PM CDT) Specimen Narrative Performed At EXAMINATION:XR CHEST 1 VW PORTABLE [facility] CLINICAL HISTORY:SOB COMPARISON:To previous study from 08/09/2014 IMPRESSION: Kyphoplasty is noted involving a midthoracic vertebral body. Cardiomediastinal silhouette is prominent pulmonary vessels are prominent. Some mild basilar congestive changes may be developing. [facility]-[id number] Procedure Note Interface, Radiology Results Incoming - 02/19/2019 9:54 PM CDT EXAMINATION: XR CHEST 1 VW PORTABLE CLINICAL HISTORY: SOB COMPARISON: To previous study from 08/09/2014 IMPRESSION: Kyphoplasty is noted involving a midthoracic vertebral body. Cardiomediastinal silhouette is prominent pulmonary vessels are prominent. Some mild basilar congestive changes may be developing. [facility]-[id number] Performing Organization Address [facility] Phone Number [facility] [address] [place] [address] * ECG 12 lead (02/19/2019 9:21 PM CDT) Ventricular 63 [facility] rate Atrial rate 63 [facility] [place] interval 176 [facility] QRSD interval 86 [...] Specimen Narrative Performed At Performing Organization Address [facility] Phone Number [facility] M[facility] [address] [place] [address] * ECG ED Preliminary Interpretation - Not an Order (02/19/2019 9:19 PM CDT) Narrative Performed At Mian Carlton MD 02/20/2019 12:23 AM ECG ED Preliminary Interpretation - Not an Order Performed by: Mian Carlton MD Authorized by: Mian Carlton MD ECG reviewed by ED Physician in the absence of a charter coach driver: yes Interpretation: Interpretation: normal Quality: Tracing quality:Limited [...] Plan / Dates Group [facility] [employer] [facility] x[facility]-P CHERRY MORA Advance Directives For more information, please contact: [phone] 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
[2019-04-17] MEDS: LEVALBUTEROL HCL SOLN NEBU 0.63 MG/3 ML NEB INH SCH ×2 (12:50→17:53)
[2019-04-17] MEDS: IPRATROPIUM BROMIDE 0.02% 2.5 ML NEB NEB SCH ×2 (12:50→17:54)
[2019-04-17] MEDS ORDERED: METHYLPREDNISOLONE SOD SUCC 125 MG/2ML VIAL IV ONE (13:00)
--- NOTE | 2019-04-17 14:13 | NUR ---
DR. MARINELLI IN WITH PT AT THIS TIME.
[2019-04-17] MEDS ORDERED: FUROSEMIDE INJ 10 MG/ML 4 ML VIAL IV ONE ×2 (15:00→19:45)
[2019-04-17 16:28] LABS: CREATINE KINASE MB 2.3 ng/mL (0-5.0)
[2019-04-17] MEDS ORDERED: WARFARIN SOD 2.5 MG TAB PO SCH ×2 (17:00)
--- NOTE | 2019-04-17 17:24 | Consultation ---
DATE OF CONSULTATION: Cardiac Consultation REASON FOR CONSULTATION: Atrial fibrillation. HISTORY: An 83-year-old lady, who is known with hypertension, COPD, former smoker, home oxygen at night, history of paroxysmal atrial fibrillation on and off for 10 years, followed by Dr. Fleming in [facility]. The patient was in this institution on February 12, 2019, when she was unstable and she had DC shock. She is maintained in sinus rhythm. She is maintained on beta-elizabeth, warfarin and Multaq. The patient came to this institution for palpitation of two days duration and heart rate is out of control. The patient was found in atrial fibrillation with very fast ventricular response. She was given digoxin, diltiazem, and she was given oral beta-elizabeth. She is still tachycardic at 130. Cardiac consultation is obtained. I visited with the patient. Her main problem is worsening shortness of breath on exertion class 3 to at least 4. Her shortness of breath became very severe. This is going on for more than 12 hours. She does have orthopnea, cough, paroxysmal nocturnal dyspnea. No syncope or presyncope. PAST MEDICAL HISTORY: 1. COPD. 2. Hypertension. 3. Atrial fibrillation, paroxysmal for the last 10 years, on anticoagulation therapy. 4. History of cardiac catheterization in 2012 with minimal disease. 5. Hysterectomy. 6. Right hip surgery. 7. Right shoulder surgery. 8. History of bilateral ankle surgery. FAMILY HISTORY: Mother in her 30s, questionable cause. Father later in life, questionable cause. There is no family history of premature coronary artery disease. HOME MEDICATIONS: Include Combivent, vitamin C, calcium carbonate, vitamin D3, Multaq 400 mg twice a day, Lasix 20 mg a day, Toprol-XL 25 mg a day, Zocor 20 mg a day, warfarin 2.5 mg daily except on Friday 5 mg. ALLERGIES: CODEINE. SOCIAL HISTORY: She lives by herself. She is former smoker, quit 20 years ago. She is not alcohol drinker. REVIEW OF SYSTEMS: GENERAL: Failure to thrive, severe shortness of breath. HEENT: Chronic congestion. The patient uses oxygen. PULMONARY: The patient on oxygen at night and uses some time during the day. She does have chronic lung disease with chronic nonproductive cough. CARDIAC: As per acute illness. GI: No hematemesis. No melena. HEMATOLOGY: Easy bruising, but no bleeding. : Increased frequency of urination. MUSCULOSKELETAL: Aches and pain. ENDOCRINE: No heat or cold intolerance. NEUROLOGICAL: No seizure activity. No TIA symptoms. Remainder of the review of system is negative. PHYSICAL EXAMINATION: GENERAL: A thin lady with height of 5 feet, weight of 120 pounds, blood pressure 100/60, heart rate of 130 per minute, irregularly irregular of atrial fibrillation. The patient on oxygen nasal cannula at 2 L/minutes. GENERAL: The patient is a thin, frail lady, on oxygen. HEENT: Pupils are reactive. NECK: No elevation of jugular venous pulsation. CHEST: Irregularly irregular rate of atrial fibrillation at 130. Normal first and second heart sound. Ejection systolic murmur over the left sternal border. LUNGS: Marked decreased lung expansion with poor air flow throughout lung stone compatible with chronic COPD. ABDOMEN: Soft, nontender. EXTREMITIES: No cyanosis, no clubbing, no edema. NEUROLOGIC: Nonfocal. LABORATORY DATA: EKG showing atrial fibrillation with rapid ventricular response. Diffuse ST-T segment changes. White blood cell count of 7.5, hemoglobin of 11.3, hematocrit 37%, platelet count of 276,000. BNP of 755. BUN 29, creatinine of 1.07, sodium of 141, potassium 4.6, glucose of 150. TSH of 0.97. INR at 1.94. Chest x-ray showing volume overload and pulmonary edema. IMPRESSION AND PLAN: 1. Paroxysmal atrial fibrillation with uncontrolled atrial fibrillation, very symptomatic. 2. Severe shortness of breath, worsening because of atrial fibrillation and heart failure as evidenced by BNP being high on the base of severe advanced lung disease, on home oxygen. 3. History of hypertension. 4. Hypercholesterolemia. Cardiac denise, we will load the patient with digoxin. We will start amiodarone intravenously. We will continue metoprolol orally. We will continue anticoagulation. Care discussed and explained to the nursing staff and ER physician. The patient will be followed in intensive care unit. The patient is acutely ill. MD HIGINIO Ghosh/FLORECITA /[id number]
--- NOTE | 2019-04-17 19:00 | NUR ---
Bedside report received from Deacon HAMMOND.
--- NOTE | 2019-04-17 19:35 | NUR ---
Spoke with Dr. Monroy notified him that the mina catheter was inserted and that 350ml of dark cathy urine had drained. New order received to give Lasix 40mg IVP once now and to follow up with labs and intake and output in the morning.
[2019-04-17] MEDS ORDERED: FAMOTIDINE 20 MG/2 ML VIAL IV SCH (21:00)
[2019-04-17] MEDS: METOPROLOL TARTRATE 25 MG TAB PO SCH (21:04)
[2019-04-17] MEDS: SIMVASTATIN 20 MG TAB PO SCH (21:04)
[2019-04-17] MEDS: TEMAZEPAM 15 MG CAP PO SCH (21:04)
[2019-04-18] VITALS (23 sets, daily range): BP systolic 86–139; BP diastolic 54–94
[2019-04-18 05:21] LABS: BASOPHILS % 0.5 % (0.0-1.0); EOSINOPHILS # (AUTO) 0.4 (0.0-0.4); EOSINOPHILS % 7.3 % (0.0-6.0); HEMATOCRIT 32.1 % (34.2-44.1); HEMOGLOBIN 9.9 g/dL (12.0-16.0); LYMPHOCYTES # (AUTO) 1.3 (1.0-3.2); LYMPHOCYTES % 23.3 % (18.0-39.1); MEAN CORPUSCULAR HEMOGLOBIN 30.1 pg (28-32); MEAN CORPUSCULAR HGB CONC 30.8 g/dL (31-35); MEAN CORPUSCULAR VOLUME 97.6 fL (81-99); MONOCYTES # (AUTO) 0.8 (0.2-0.8); MONOCYTES % 14.7 % (4.4-11.3); NEUTROPHILS % 53.8 % (38.7-80.0); PLATELET COUNT 225 x10e3/uL (140-360); RED BLOOD COUNT 3.29 x10e6/uL (3.6-5.1); RED CELL DISTRIBUTION WIDTH 14.5 % (11.7-14.4)
[2019-04-18 05:33] LABS: INR 2.49; PROTHROMBIN TIME 27.6 seconds (11.9-14.5)
[2019-04-18 05:40] LABS: ALBUMIN 2.9 g/dL (3.5-5.0); ALBUMIN/GLOBULIN RATIO 0.9 (0.8-2.0); CALCIUM 9.3 mg/dL (8.4-10.2); CREATININE, SERUM 0.9 mg/dL (0.57-1.11)
[2019-04-18 05:56] LABS: CHOL/HDL RATIO 2.8 (3.0-3.6)
[2019-04-18] MEDS: LEVALBUTEROL HCL SOLN NEBU 0.63 MG/3 ML NEB INH SCH ×4 (07:20→19:03)
[2019-04-18] MEDS: IPRATROPIUM BROMIDE 0.02% 2.5 ML NEB NEB SCH ×4 (07:20→19:03)
[2019-04-18 07:47] LABS: CREATINE KINASE MB 2.4 ng/mL (0-5.0)
--- NOTE | 2019-04-18 08:08 | Diagnostic Imaging Report ---
A single frontal view of the chest. HISTORY: Edema, atrial fibrillation COMPARISON: Chest April 17, 2019 DISCUSSION: Portable technique, limits sensitivity of the exam. Multiple overlying artifacts. Tubes/Lines: None IMPRESSION: 1. Slightly improved pulmonary edema. 2. Unchanged diffuse demineralization with probable history of midthoracic vertebral augmentation. Signed by: Dr. Ramos Barreto D.O., M.M.M. on 04/18/2019 8:04 AM
[2019-04-18] MEDS: DRONEDARONE 400 MG TAB PO SCH ×2 (09:21→18:03)
[2019-04-18] MEDS: METOPROLOL TARTRATE 25 MG TAB PO SCH (09:21)
[2019-04-18 10:02] LABS: BILIRUBIN,URINE NEGATIVE (NEGATIVE); CLARITY,URINE SL CLOUDY (CLEAR); COLOR,URINE YELLOW (YELLOW); KETONES,URINE NEGATIVE (NEGATIVE); LEUKOCYTE ESTERASE ,URINE SMALL (NEGATIVE); NITRITE,URINE NEGATIVE (NEGATIVE); PROTEIN,URINE DIPSTICK TRACE (NEGATIVE); URINE UROBILINOGEN 0.2 mg/dL (0.2 - 1)
[2019-04-18 10:05] LABS: BACTERIA,URINE FEW /HPF; EPITHELIAL CELLS,URINE FEW /LPF
[2019-04-18] MEDS ORDERED: FUROSEMIDE 20 MG TAB PO ONE (11:45)
[2019-04-18] MEDS ORDERED: FUROSEMIDE INJ 10 MG/ML 4 ML VIAL IV ONE ×2 (14:00→16:00)
[2019-04-18] MEDS ORDERED: FUROSEMIDE 40 MG TAB PO SCH (14:00)
[2019-04-18] MEDS ORDERED: FUROSEMIDE INJ 10 MG/ML 4 ML VIAL ONE (14:46)
[2019-04-18] MEDS: METOPROLOL TARTRATE 50 MG TAB PO SCH ×2 (14:52→21:04)
[2019-04-18] MEDS: AMIODARONE HCL 200 MG TAB PO SCH ×2 (15:00→20:08)
--- NOTE | 2019-04-18 15:34 | Consultation ---
DATE OF CONSULTATION: Pulmonary Consultation REASON FOR THE CONSULT: Possible COPD, pulmonary edema. HISTORY OF PRESENT ILLNESS: Ms. Greene is an 83-year-old female. She was admitted by under Dr. Monroy's service with complaints of shortness of breath. The patient smoked for 20+ years, has a known history of COPD. She follows up at [facility]. She denies any complaints of chest pain, nausea, vomiting. Her breathing has improved. REVIEW OF SYSTEMS: GENERAL: Denies any fever or chills. HEAD: Denies any head trauma. ENT: Denies any earache. CVS: Denies any chest pain. RESPIRATORY: Shortness of breath. The rest of the review of systems are negative except as in HPI. PAST MEDICAL HISTORY: Hypertension, atrial fibrillation, history of cardiac catheterization in 2012, COPD, right hip surgery, shoulder surgery, history of bilateral ankle surgery. FAMILY AND SOCIAL HISTORY: She currently does not smoke, does not drink. Ex-smoker, 20 years of smoking. PHYSICAL EXAMINATION: VITAL SIGNS: Temperature 98, pulse of 88, blood pressure 126/80, respiratory rate of 18, O2 saturation 96% on 3 L. HEENT: Head is atraumatic, normocephalic. NECK: Supple. CHEST: Clear to auscultation bilaterally. No wheezing. HEART: S1, S2 audible. ABDOMEN: Soft. EXTREMITIES: No pedal edema. NEUROLOGIC: Awake, alert. No focal neurologic deficits. LABORATORY DATA: White count of 5000, hemoglobin 9.9, platelets 225. Chemistry; sodium 142, potassium 4.0, chloride 101, bicarb 31, AST 97, ALT 182. Chest x-ray, I have reviewed the images showing evidence of pulmonary edema, however, it is improved compared to 04/17/2019. ASSESSMENT: Ms. Greene is an 83-year-old female. She was admitted for shortness of breath, found to be in pulmonary edema. The patient is an ex-smoker, smoked for 20 years. Has a known history of chronic obstructive pulmonary disease per the chart. PLAN: 1. Continue the patient on oxygen and nebulizer treatments. The patient will be continued on diuretics. 2. No need for IV steroids at this point as the patient's wheezing has resolved with Xopenex treatment. Thank you for this consult. MD JAMIE Kimble/FLORECITA /[id number]
[2019-04-18] MEDS ORDERED: WARFARIN SOD 2.5 MG TAB PO SCH (17:00)
[2019-04-18] MEDS: TEMAZEPAM 15 MG CAP PO SCH (20:08)
[2019-04-18] MEDS: SIMVASTATIN 20 MG TAB PO SCH (20:08)
[2019-04-19] VITALS (16 sets, daily range): BP systolic 95–115; BP diastolic 51–75
[2019-04-19] MEDS: LEVALBUTEROL HCL SOLN NEBU 0.63 MG/3 ML NEB INH SCH ×5 (01:10→23:47)
[2019-04-19] MEDS: IPRATROPIUM BROMIDE 0.02% 2.5 ML NEB NEB SCH ×5 (01:10→23:47)
[2019-04-19 05:24] LABS: INR 3.35; PROTHROMBIN TIME 34.7 seconds (11.9-14.5)
[2019-04-19 05:28] LABS: ANION GAP 11.5 mmol/L (8-16); BLOOD UREA NITROGEN 17 mg/dL (7-26); BUN/CREATININE RATIO 20 (6-25); CARBON DIOXIDE 32 mmol/L (22-29); CHLORIDE 99 mmol/L (98-107); CREATININE, SERUM 0.85 mg/dL (0.57-1.11); EST GLOMERULAR FILTRATION RATE > 60 ML/MIN (60-); GLUCOSE 85 mg/dL (74-118); POTASSIUM 3.5 mmol/L (3.5-5.1); SODIUM 139 mmol/L (136-145)
[2019-04-19] MEDS: METOPROLOL TARTRATE 50 MG TAB PO SCH ×3 (06:00→21:22)
[2019-04-19] MEDS: FUROSEMIDE 20 MG TAB PO SCH (08:07)
[2019-04-19] MEDS: DRONEDARONE 400 MG TAB PO SCH (08:07)
[2019-04-19] MEDS: AMIODARONE HCL 200 MG TAB PO SCH ×3 (08:07→20:28)
--- NOTE | 2019-04-19 08:19 | NUR ---
patient reports that hse has not been out of bed since admission. assisted up to edge of bed
--- NOTE | 2019-04-19 08:47 | Diagnostic Imaging Report ---
EXAMINATION: CHEST SINGLE (PORTABLE) INDICATION: Shortness of breath COMPARISON: Chest radiograph of 04/18/2019 FINDINGS: LINES/TUBES:EKG leads overlie the chest. LUNGS:The lungs are moderately inflated. There is perihilar fullness and indistinctness of the pulmonary vasculature. PLEURA:No pleural effusion or pneumothorax. MEDIASTINUM:Cardiomediastinal silhouette is stably enlarged. BONES/SOFT TISSUES:Postoperative findings of prior mid thoracic vertebral augmentation and right proximal humerus open reduction internal fixation hardware. ABDOMEN:No free air under the diaphragm. IMPRESSION: Pulmonary interstitial edema, slightly improved compared to 04/18/2019. Signed by: Carlos Diaz MD on 04/19/2019 8:43 AM
[2019-04-19] MEDS ORDERED: FUROSEMIDE 20 MG TAB PO SCH ×2 (09:00)
--- NOTE | 2019-04-19 12:58 | Progress Note ---
DATE: 04/19/2019 CONSULTING PHYSICIANS: 1. Dr. Gloria Hugo for Cardiology. 2. Dr. Aleyda Gomez for Pulmonary. CHIEF COMPLAINT: Atrial fibrillation with RVR, shortness of breath. REVIEW OF SYSTEMS: GENERAL: No acute distress. HEENT: No vision problem or head trauma. LUNGS: No shortness of breath. O2 via nasal cannula. CARDIOVASCULAR: No chest pain or palpitation. ABDOMEN: No nausea, vomiting. NEUROLOGIC: Alert. MUSCULOSKELETAL: Weak. SKIN: No rashes. PHYSICAL ASSESSMENT: VITAL SIGNS: Temperature 97.0, pulse is 75, blood pressure is 99/68, respirations 21, and SpO2 98% on 2 L of O2. General: no acute distress Lungs: few crackles Heart: irregular irregular, normal s1 and s2 Abdomen: soft, nondistended Neurologic: alert and oriented times 3 psychiatric: no hallucination skin: no rash LABORATORY DATA: Sodium 139, potassium 3.5, CO2 of 32, creatinine 0.85, BUN 17. WBC 5.59, hemoglobin 9.9, INR 3.35. Chest x-ray this morning showed improvement of pulmonary edema compared to yesterday's chest x-ray. IMPRESSION: 1. Atrial fibrillation with rapid ventricular response, now improved. 2. Chronic obstructive pulmonary disease with respiratory distress, now improved. 3. Hypertension, now hypotensive. 4. Diastolic and systolic congestive heart failure. Continue current medications, pulmonary edema. 5. Supratherapeutic INR of 3.35. We will hold Coumadin today and recheck INR in a.m. PLAN: We will continue current treatment, we will continue Lasix p.o., we will discontinue Patel catheter, physical therapy consulted to get her up and walking. Heart rate is much controlled in the 70s with amiodarone 400 mg b.i.d. and beta- blockers 50 mg q.8 hours. Further recommendations per Cardiology. Dictated by JUSTIN Ballard Kylah Monroy MD MY/MODL /[id number]
--- NOTE | 2019-04-19 15:55 | NUR ---
I stopped by to see the pt and to evaluate for pulmonary rehab. The pt is interested in pulmonary rehab. Pt has to depend on someone to drive her to her visits because she is visually impaired. She said she could make 2 days a week. Pt is 02 dependent and currently uses a cane to ambulate. After talking to the patient I do feel that she could be a good candidate for pulmonary rehab.
--- NOTE | 2019-04-19 19:00 | NUR ---
patient received awake, alert, lying quietly in bed. no c/o pain noted. respirations even and unlabored. 02/2l/nc in use. pm assessment complete. patient instructed to call for assistance when needed.
[2019-04-19] MEDS: SIMVASTATIN 20 MG TAB PO SCH (20:28)
[2019-04-19] MEDS: TEMAZEPAM 15 MG CAP PO SCH (20:28)
[2019-04-20] VITALS (8 sets, daily range): BP systolic 106–130; BP diastolic 56–73
--- NOTE | 2019-04-20 03:00 | NUR ---
patient ambulates to bathroom with assistance. patient voids without difficulty. no c/o pain noted at this time.
[2019-04-20] MEDS: METOPROLOL TARTRATE 50 MG TAB PO SCH ×3 (05:28→21:18)
[2019-04-20 06:20] LABS: INR 1.11; PROTHROMBIN TIME 14.8 seconds (11.9-14.5)
[2019-04-20] MEDS: IPRATROPIUM BROMIDE 0.02% 2.5 ML NEB NEB SCH ×3 (07:45→19:35)
[2019-04-20] MEDS: LEVALBUTEROL HCL SOLN NEBU 0.63 MG/3 ML NEB INH SCH ×3 (07:45→19:35)
[2019-04-20 08:06] LABS: BASOPHILS % 0.5 % (0.0-1.0); EOSINOPHILS # (AUTO) 1.5 (0.0-0.4); EOSINOPHILS % 22.8 % (0.0-6.0); HEMATOCRIT 34.2 % (34.2-44.1); HEMOGLOBIN 10.9 g/dL (12.0-16.0); LYMPHOCYTES # (AUTO) 1.1 (1.0-3.2); LYMPHOCYTES % 17.4 % (18.0-39.1); MEAN CORPUSCULAR HEMOGLOBIN 30.8 pg (28-32); MEAN CORPUSCULAR HGB CONC 31.9 g/dL (31-35); MEAN CORPUSCULAR VOLUME 96.6 fL (81-99); MONOCYTES # (AUTO) 0.9 (0.2-0.8); MONOCYTES % 13.1 % (4.4-11.3); NEUTROPHILS % 45.7 % (38.7-80.0); PLATELET COUNT 264 x10e3/uL (140-360); RED BLOOD COUNT 3.54 x10e6/uL (3.6-5.1); RED CELL DISTRIBUTION WIDTH 14.2 % (11.7-14.4)
[2019-04-20] MEDS: FUROSEMIDE 20 MG TAB PO SCH (08:42)
[2019-04-20] MEDS: AMIODARONE HCL 200 MG TAB PO SCH (08:42)
--- NOTE | 2019-04-20 12:18 | NUR ---
PATIENT IS IN STABLE CONDITION WITH NO S/S OF RESPIRATORY DISTRESS- NO PAIN VOICED. TELEMETRY APPLIED. O2 APPLIED. CALL LIGHT IS WITHIN REACH, PATIENT INSTRUCTED TO CALL FOR ASSISTANCE NEEDED.
[2019-04-20] MEDS ORDERED: WARFARIN SOD 5 MG TAB PO ONE (12:30)
--- NOTE | 2019-04-20 16:08 | NUR ---
DR. MARINELLI ON THE UNIT- SPOKE WITH DR. MARINELLI REGARDING HOME HEALTH ORDER. PATIENT INFORMED DR. MARINELLI SHE HAS HOME HEALTH WITH PT ALREADY SET AT HOME. ATTEMPTED TO CALL TECHNOLOGY METHODOLOGY CONSULTANT BUT UNABLE TO LEAVE VOICE MESSAGE.
--- NOTE | 2019-04-20 16:35 | NUR ---
ORDER RECEIVED FOR HOME HEALTH TO RESUME SN/PT/OT. CM MET W THE PT AT THE BEDSIDE. STATES SHE IS ALREADY ON SERVICE W [facility]. CHOICE LETTER WAS SIGNED AND COPY TO THE PT AND COPY TO THE CHART.
--- NOTE | 2019-04-20 18:48 | NUR ---
PATIENT IN STABLE CONDITION WITH NO S/S OF RESPIRATORY DISTRESS. NO PAIN VOICED. TELEMETRY APPLIED. 02 APPLIED. BED ALARM ON. FAMILY MEMBER PRESENT IN ROOM. CALL LIGHT IS WITHIN REACH, PATIENT INSTRUCTED TO CALL FOR ASSISTANCE NEEDED. BEDSIDE REPORT GIVEN TO ONCOMING NURSE.
--- NOTE | 2019-04-20 19:00 | NUR ---
patient received awake, alert, lying quietly in bed. no c/o pain noted. pm assessment complete. patient instructed to call for assistance when needed.
--- NOTE | 2019-04-20 19:28 | Progress Note ---
DATE: 04/20/2019 CONSULTING PHYSICIAN: Dr. Gloria Hugo with Cardiology and Dr. Aleyda Gomez with Pulmonary. CHIEF COMPLAINT: Shortness of breath and atrial fibrillation. SUBJECTIVE: The patient is resting in bed with daughter at the bedside. She denies any fever, chills, nausea, vomiting, constipation. She was able to walk with physical therapy today. MEDICATIONS: See medication list. OBJECTIVE: VITAL SIGNS: Temperature 97.1, pulse is 97, blood pressure is 123/70, respirations 22, and SpO2 is 99% on 2 liters of oxygen. GENERAL: She is in bed with no acute distress. NECK: Supple. LUNGS: Decreased breath sounds. CARDIOVASCULAR: Irregular rate and rhythm, but with controlled rate. ABDOMEN: Soft and nontender with active bowel sounds. EXTREMITIES: Moves all extremities. NEUROLOGIC: Alert, awake, oriented x3. SKIN: Grossly intact. LABS: Sodium 139, potassium 3.5, chloride 99, CO2 of 32, creatinine 0.86. WBC 6.5, hemoglobin 10.9, hematocrit 34.2. INR 1.11. IMPRESSION: 1. Atrial fibrillation with RVR, now with controlled rate. 2. Chronic obstructive pulmonary disease with no exacerbation. 3. Hypertension, controlled. 4. Diastolic congestive heart failure. Resume home medications. 5. Coumadin therapy with INR of 1.1 today. She was given Coumadin 5 mg x1. PLAN: We will continue current treatments, Coumadin 5 mg was given, we will repeat INR in the morning, and adjust dose as needed. She was able to ambulate with physical therapy and recommend home health for PT, OT. CM consulted for PT, OT, and home health arrangements. Anticipate discharge home tomorrow. Dictated by JUSTIN Ballard Kylah Monroy MD MY/MODL /[id number] The patient was seen and examined. Agree with the findings and plan as documented by JUSTIN Lazaro. BEAU
[2019-04-20] MEDS: TEMAZEPAM 15 MG CAP PO SCH (20:33)
[2019-04-20] MEDS: SIMVASTATIN 20 MG TAB PO SCH (20:33)
[2019-04-21] VITALS (7 sets, daily range): BP systolic 106–143; BP diastolic 59–73
[2019-04-21] MEDS: IPRATROPIUM BROMIDE 0.02% 2.5 ML NEB NEB SCH ×4 (01:30→19:43)
[2019-04-21] MEDS: LEVALBUTEROL HCL SOLN NEBU 0.63 MG/3 ML NEB INH SCH ×4 (01:30→19:43)
--- NOTE | 2019-04-21 04:00 | NUR ---
patient appears to be resting quietly. no c/o pain noted. am labs drawn at this time.
[2019-04-21 05:19] LABS: INR 3.16; PROTHROMBIN TIME 33.2 seconds (11.9-14.5)
[2019-04-21] MEDS: METOPROLOL TARTRATE 50 MG TAB PO SCH ×3 (05:31→22:00)
--- NOTE | 2019-04-21 07:15 | NUR ---
DURING BEDSIDE ROUNDS PT RESTING QUIETLY.
[2019-04-21] MEDS: FUROSEMIDE 20 MG TAB PO SCH (09:00)
[2019-04-21] MEDS: AMIODARONE HCL 200 MG TAB PO SCH (09:07)
--- NOTE | 2019-04-21 10:55 | NUR ---
DR CHAMBERS AT BEDSIDE HR 130; ORDERS GIVEN AND CARRIED OUT
--- NOTE | 2019-04-21 12:30 | NUR ---
PT HR DOWN TO BETWEEN 79-93 AFIB
--- NOTE | 2019-04-21 15:30 | NUR ---
PT DOWN VIA BED FOR CTA Addendum: 04/21/19 at 1547 by Magui Barger RN ENTER ON WRONG PT
--- NOTE | 2019-04-21 15:41 | Progress Note ---
DATE: 04/21/2019 CONSULTING PHYSICIANS: 1. Dr. Oanh Castro with Cardiology. 2. Dr. Jason Maynard with Pulmonary. 3. Dr. Siva Davila with EP. CHIEF COMPLAINT: Shortness of breath with atrial fibrillation with RVR. SUBJECTIVE: The patient is resting in bed with no acute distress, she had an episode of atrial fibrillation with RVR overnight with a heart rate up to 130s to 150s. Also had chest pain and palpitations. She denies any fevers, chills, nausea, or vomiting. Daughter is at the bedside and discussed treatment plan with the daughter and the patient. OBJECTIVE: VITAL SIGNS: Temperature 96.7, pulse is 68, blood pressure 118/73, respirations 20, and SpO2 is 96% on 2 liters of O2. GENERAL: Appears to be in no acute distress. Well groomed. NECK: Supple and midline. LUNGS: Clear to auscultation. HEENT: Normocephalic. Right eye vision loss. CARDIOVASCULAR: Irregular heart rhythm. ABDOMEN: Soft and nontender. EXTREMITIES: Active ROM. No edema noted. NEUROLOGICAL: Alert, awake, and oriented x3. SKIN: Dry and intact. MEDICATIONS: See medication list. 1. Continue amiodarone 200 mg daily. 2. Coumadin. She will start at 2.5 mg. 3. Metoprolol 50 mg t.i.d. 4. Lasix. LABORATORY DATA: Sodium 139, potassium 3.5, chloride 99, CO2 of 32, and creatinine 0.85. WBC 6.5, hemoglobin 10.9, and hematocrit 34.2. INR 3.16. IMPRESSION: 1. Atrial fibrillation with rapid ventricular response. Heart rate 130s to 150s. Continue current medications. EP consulted for evaluation. 2. Chronic obstructive pulmonary disease. Continue on O2. Pulmonary on the case. 3. Hypertension, stable. Continue current medication. 4. Diastolic congestive heart failure. Continue current medication. Not on exacerbation. 5. Supratherapeutic INR 3.16. We will continue to monitor INR and adjust dose. PLAN: Continue current treatment, we will consult Case Management regarding placement as the patient is living in an apartment by herself and daughter is concerned that she may need to be placed in an assisted living. The patient is agreeable to the idea of assisted living. We will continue current treatment pending EP evaluation. JUSTIN Ballard /[id number]
--- NOTE | 2019-04-21 19:15 | NUR ---
patient received awake, alert, lying quietly in bed. respirations even and unlabored. no c/o pain noted. pm assessment complete. patient instructed to call for assistance when needed.
[2019-04-21] MEDS: SIMVASTATIN 20 MG TAB PO SCH (20:38)
[2019-04-21] MEDS: TEMAZEPAM 15 MG CAP PO SCH (20:38)
[2019-04-22] VITALS (7 sets, daily range): BP systolic 101–143; BP diastolic 63–100
--- NOTE | 2019-04-22 | NUR ---
patient appears to be resting quietly. no c/o pain/discomfort noted at this time.
[2019-04-22] MEDS: LEVALBUTEROL HCL SOLN NEBU 0.63 MG/3 ML NEB INH SCH ×3 (00:15→13:40)
[2019-04-22] MEDS: IPRATROPIUM BROMIDE 0.02% 2.5 ML NEB NEB SCH ×3 (00:15→13:40)
[2019-04-22] MEDS: METOPROLOL TARTRATE 50 MG TAB PO SCH ×3 (05:25→22:00)
[2019-04-22 06:31] LABS: INR 2.45; PROTHROMBIN TIME 27.3 seconds (11.9-14.5)
--- NOTE | 2019-04-22 07:00 | NUR ---
BEDSIDE SHIFT REPORT RECEIVED FROM THE VALUE ANALYSIS COORDINATOR RN. EDUCATED PT ABOUT FALL PRECAUTIONS. CALL LIGHT WITH IN EASY REACH. INSTRUCTED PT TO CALL FOR ANY NEEDS. PT DENIES NEEDS AT THIS TIME.
[2019-04-22] MEDS: AMIODARONE HCL 200 MG TAB PO SCH (09:37)
[2019-04-22] MEDS: FUROSEMIDE 20 MG TAB PO SCH (09:37)
--- NOTE | 2019-04-22 12:48 | NUR ---
REFERRAL WAS FAXED TO [facility] @ OFF: [phone] / FAX: [phone]. PT WAS DISCUSSED IN MDR. INR 3.16 AND COUMADIN WAS HELD. STATES SHE HAD A RUN OF AFIB W RVR AND EP WOULD EVAL THE PT TODAY. CALL RECEIVED FROM [facility] @ [phone] [facility]. STATES SHE SPOKE W THE PT AND SHE WOULD DC PROBABLY TOMORROW.
--- NOTE | 2019-04-22 12:51 | NUR ---
HOME HEALTH DISCHARGE NOTE PATIENT ADDRESS WHERE SERVICE WILL BE RECEIVED: [address] [place] [address] PATIENT CONTACT NUMBER: [phone] NAME OF HOME HEALTH COMPANY: [facility] TELEPHONE/FAX NUMBER OF COMPANY: OFF: [phone] / FAX: [phone] ADDRESS OF COMPANY: [address] [place] [id number] SERVICES TO RECEIVE: [facility], PHYSICAL OND OCCUPATIONAL THERAPY RESUMPTION ANTICIPATED DATE SERVICES WILL BEGIN: 04/24/2019 Please call the company above if you have not received a call to schedule a home visit within 24 hours of discharge.
--- NOTE | 2019-04-22 14:57 | NUR ---
GAVE RESOURCES FOR SENIOR RESOURCES GUIDE AND NEW LIFESTYLES FOR PT TO FOLLOW UP FOR ASSISTED LIVING PLACEMENTS.
--- NOTE | 2019-04-22 16:15 | NUR ---
DR. CAROLINA DE LEON AT BEDSIDE. PT MIGHT NEED PACE MAKER AND AV NODE ABLATION PER THE INFORMED CASE MANAGEMENT THE SAME PER THE
--- NOTE | 2019-04-22 16:25 | NUR ---
HOLD COUMADIN PER DR. CAROLINA DE LEON.
[2019-04-22] MEDS: WARFARIN SOD 2.5 MG TAB PO SCH (16:35)
--- NOTE | 2019-04-22 19:00 | NUR ---
patient received awake, alert, lying quietly in bed. no c/o pain noted. pm assessment complete. patient instructed to call for assistance when needed.
[2019-04-22] MEDS: TEMAZEPAM 15 MG CAP PO SCH (21:00)
[2019-04-22] MEDS: SIMVASTATIN 20 MG TAB PO SCH (21:00)
[2019-04-23 04:00] VITALS: BP 127/82
--- NOTE | 2019-04-23 04:11 | Consultation ---
DATE OF CONSULTATION: 04/22/2019 REASON FOR CONSULT: Atrial fibrillation. HISTORY OF PRESENT ILLNESS: She is an 83-year-old woman with history of atrial fibrillation. She underwent cardioversion few weeks ago due to presenting very symptomatic with rapid ventricular response. She is not sure when she had these atrial fibrillation started, but she has been persistent despite medical therapy. She also has history of congestive heart failure with preserved ejection fraction with shortness of breath and some pulmonary edema. She feels very short of breath, which is worsening the COPD. She has been on home oxygen as well. Currently, she is receiving medical therapy without significant improvement. REVIEW OF SYSTEMS: CONSTITUTIONAL: As per . CARDIOVASCULAR: As per HPI. RESPIRATORY: As per HPI. GASTROINTESTINAL: Negative. GENITOURINARY: Negative. MUSCULOSKELETAL: Negative. EYES: Negative. ENT: Negative. ALLERGIC/IMMUNOLOGIC: Negative. PSYCHIATRIC: Negative. PAST MEDICAL HISTORY: Atrial fibrillation. SURGICAL HISTORY: Denies. SOCIAL HISTORY: Denies alcohol and current smoking. FAMILY HISTORY: No premature coronary artery disease. PHYSICAL EXAMINATION: VITAL SIGNS: Blood pressure 120/60, pulse 100, respiration 20, O2 sats 98%. GENERAL: In no acute distress. HEENT: Moist mucous membranes. CARDIOVASCULAR: Irregular. RESPIRATORY: Clear. ABDOMEN: Soft. Nontender. MUSCULOSKELETAL: 2+ pulses. NEUROLOGICAL: No focal deficit. SKIN: No lesions. PSYCHIATRIC: Normal thought process. EKG, atrial fibrillation, rapid ventricular response. IMPRESSION: 1. Persistent atrial fibrillation with rapid ventricular response refractory to cardioversion and medical therapy. 2. Congestive heart failure with preserved ejection fraction. RECOMMENDATIONS: I had a long discussion with the patient. At this time, the options are considering ablation procedure versus AV tami ablation with a pacemaker. Discussed the pros and cons, however, the downside of ablation procedure is the general anesthesia due to the COPD. There is an increased risk for complications from the respiratory standpoint, on the other hand and the pacemaker can be performed with moderate sedation in an AV node ablation. This was discussed in detail. The patient states she would not want to under go any general anesthesia procedures and she would like the most definitive therapy at this time. So, most reasonable at least to have a pacemaker with AV node ablation. She voices understanding. She understands she will become dependent on device, all the benefits and risks, and she would like to proceed. I recommend this procedure to be performed as an inpatient. However, it cannot be performed at this facility, we will transfer to a facility with electrophysiology capability. Thank you for letting us participate in Ms. Greene' healthcare. MD ROSI Le/FLORECITA /[id number]
[2019-04-23] MEDS: METOPROLOL TARTRATE 50 MG TAB PO SCH ×2 (06:00→15:00)
[2019-04-23] MEDS: LEVALBUTEROL HCL SOLN NEBU 0.63 MG/3 ML NEB INH SCH ×2 (06:45→13:00)
[2019-04-23] MEDS: IPRATROPIUM BROMIDE 0.02% 2.5 ML NEB NEB SCH ×2 (06:45→13:00)
--- NOTE | 2019-04-23 07:00 | NUR ---
BEDSIDE SHIFT REPORT RECEIVED FROM THE GRAIN ELEVATOR SUPERINTENDENT RN. EDUCATED PT ABOUT FALL PRECAUTIONS. BED ALARM IS ON. CALL LIGHT WITH IN EASY REACH. INSTRUCTED PT TO CALL FOR ANY NEEDS. PT DENIES NEEDS AT THIS TIME.
[2019-04-23 07:33] VITALS: BP 113/62
[2019-04-23 07:47] VITALS: BP 113/62
[2019-04-23] MEDS: FUROSEMIDE 20 MG TAB PO SCH (08:44)
[2019-04-23] MEDS: AMIODARONE HCL 200 MG TAB PO SCH (08:44)
--- NOTE | 2019-04-23 08:58 | NUR ---
PAGED DR MARINELLI REGARDING PT DISCHARGE. TRANSFER PT TO [facility] PER DR. MARINELLI .
--- NOTE | 2019-04-23 09:00 | NUR ---
INFORMED CASE MANAGEMENT REGARDING PT TRANSFER TO [facility].
[2019-04-23 11:17] VITALS: BP 137/92
--- NOTE | 2019-04-23 11:43 | NUR ---
ORDER RECEIVED TO TRANSFER PT TO [facility] FOR EP W/U. MET W THE PT AT THE BEDSIDE. PROVIDED CHOICE. STATES SHE AGREES W THE [facility] TRANSFER. CHOICE LETTER WAS SIGNED AND COPY TO PT AND COPY TO CHART. CALL TO [facility] @ [phone]. SPOKE Bashir ANNE. TRANSFER INITIATED. MOT INITIATED. WILL AWAIT CALL BACK.
[2019-04-23] MEDS: WARFARIN SOD 2.5 MG TAB PO SCH (14:24)
--- NOTE | 2019-04-23 14:24 | NUR ---
HOSPITAL TRANSFER DISCHARGE INFORMATION PATIENT HAS BEEN ACCEPTED TO: NAME: [facility] ADDRESS: [address] [place] [address] ACCEPTING INSPECTOR [employer]: TANESHA PERERA ACCEPTING MD: ABHISHEK MARINELLI MD ROOM: 4025 NURSE CALL REPORT TO: [phone] THE FOLLOWING DOCUMENTS MUST ACCOMPANY PATIENT FOR TRANSFER: COPIED CHART: BY MOT INFO RECEIVED FROM: MARINE AT [facility] ORDER/RECONCILED MED LIST: MANISH SAL [id number] DNR: N/A
[2019-04-23] MEDS ORDERED: METOPROLOL TART50 MG PO (14:40)
[2019-04-23] MEDS ORDERED: AMIODARONE HCL200 MG PO (14:40)
--- NOTE | 2019-04-23 15:00 | NUR ---
DR. MARINELLI AT BEDSIDE. D/C COUMADIN PER DR. MARINELLI
--- NOTE | 2019-04-23 15:10 | NUR ---
CALLED [facility]IAN AND REPORT GIVEN TO SUGAR RN RM [phone]. KEEP THE IV PER THE RN.
[2019-04-23 15:37] VITALS: BP 115/56
--- NOTE | 2019-04-23 18:15 | NUR ---
PATIENT TRANSFERRED TO [facility] VIA EMS. PATIENT DAUGHTER WAS PRESENT. TELE REMOVED. IV KEPT @ PER THE [facility] RN REQUEST. PT DENIED FURTHER NEEDS.
--- NOTE | 2019-04-24 06:27 | Discharge Summary ---
CONSULT PHYSICIANS: 1. Dr. Gloria Hugo with Cardiology. 2. Dr. Aleyda Gomez with Pulmonary. 3. Dr. Siva Davila with EP. PRIMARY CARE DOCTOR: Dr. Del Hampton with [facility]. CHIEF COMPLAINT: Atrial fibrillation with RVR and shortness of breath. FINAL DISCHARGE DIAGNOSES: 1. Atrial fibrillation with rapid ventricular response. 2. History of chronic obstructive pulmonary disease. 3. Hypertension. 4. Diastolic congestive heart failure. 5. Debility. PROCEDURES: None. HISTORY: As per HPI. HOSPITAL COURSE: This is an 83-year-old female with past medical history of paroxysmal atrial fibrillation, hypertension, COPD, and diastolic CHF, presented with uncontrolled AFib with RVR. She was initially started on amiodarone drip and resumed her home medication of metoprolol and amiodarone. She was continued on Coumadin for CVA prophylaxis. Cardiology was consulted. She was weaned off the drip and continued on amiodarone 200 mg p.o. and metoprolol increased to 50 mg t.i.d. She was monitored on telemetry and continued to have episodes of AFib with RVR with a heart rate of 150 overnight. So, Dr. Giovanni Paniagua was consulted for EP studies. He has recommended that she needs AV node ablation and pacemaker placement due to severity of her atrial fibrillation. We will transfer the patient to [facility] for the ablation and pacemaker placement. Vital signs are stable, chest pain-free, discharge when bed available. PHYSICAL EXAMINATION: VITAL SIGNS: Temperature 96.4, pulse is 86, blood pressure 113/62, respirations 18, and SpO2 is 96. GENERAL: In no acute distress. NECK: Supple. LUNGS: Decreased breath sounds. CARDIOVASCULAR: Irregular rate and rhythm. HEENT: Normocephalic and atraumatic. ABDOMEN: Soft and nontender. EXTREMITIES: Active ROM. NEUROLOGICAL: Alert, awake, and oriented x3. SKIN: Grossly intact. CONDITION AT DISCHARGE: Stable. DISCHARGE MEDICATIONS: See medication reconciliation list. FOLLOWUP: 1. Follow up with Dr. Giovanni Paniagua for EP studies ablation and pacemaker placement tomorrow. 2. Follow up with Dr. Oanh Castro with Cardiology. Total discharge time is 35 minutes. Dictated by JUSTIN Ballard MD ADELSO Jacob/GEORGINAL /[id number] cc: Dr. Del Danielson The patient was seen and examined. Agree with the findings and plan as documented by JUSTIN Lazaro. BEAU
== END 2019-04-23 18:20 | disposition short-term general hospital (02) | DRG 308 ==
LOC: ER 08:32 → ERHOLD 11:08 → ICU 16:13 → MED/SURG3 04-19 11:25
PROVIDERS: ADMIT Internal Medicine; ATTEND Internal Medicine
DX: I48.0 Paroxysmal atrial fibrillation (principal); I50.33 Acute on chronic diastolic (congestive) heart failure; J96.10 Chronic respiratory failure, unspecified whether with hypoxia or hypercapnia; I50.1 Left ventricular failure, unspecified; I11.0 Hypertensive heart disease with heart failure; J44.9 Chronic obstructive pulmonary disease, unspecified; R79.1 Abnormal coagulation profile; Z99.81 Dependence on supplemental oxygen
CPT/HCPCS: 36415; 71045; 80048; 80053; 80061; 81001; 82550; 82553; 83735; 83880; 84443; 84484; 85025; 85610; 85730; 87086; 93005; 94640; 97139; 99284; J1160; J1940; J2930

== ENCOUNTER 2019-12-13 12:52 | Inpatient (IN) | payer MEDICARE, OTHER ==
[~2019-12-13] VITALS: Ht 149.9 cm; Wt 51.7 kg
[~2019-12-13 12:52] MED LIST changes: +AMIODARONE HCL200 MG PO; +METOPROLOL TART50 MG PO
--- OUTSIDE RECORDS SUMMARY | 2019-12-13 12:56 | XMS REPORT | Clinical Summary ---
Author Author Bernardino [facility] Organization [facility] Address Unknown Phone Unavailable Care Team Providers Care Vmware Administrator Name Role Phone Del Hampton MD PCP [...] 02/19/2019 Emergency Emergency Medicine - 02/20/2019 after 12/12/2018 Social History Date Tobacco Use Types Packs/Day Years Used Never Smoker Smokeless Tobacco: Never Used Drinks/Week oz/Week Comments Alcohol Use Never Alcohol Habits Answer Date Recorded How often do you have a drink containing alcohol? Never 02/19/2019 How many drinks containing alcohol do you have on No t asked a typical day when you are [...] Due Date Last Done Comments SHINGLES VACCINES (#2) 12/05/2013 10/05/2013 INFLUENZA VACCINE 03/04/2020 08/13/2018, 05/15/2016, 07/12/2015, Additional history exists 65+ PNEUMOCOCCAL VACCINE Completed 01/02/2015, 10/04/2013 Procedures Comments Procedure Name Priority Date/Time Associated Diag nosis ESTIMATED GFR STAT 02/19/2019 10:16 PM CDT [...] Routine 02/19/2019 INTERPRETATION 9:19 PM CDT after 12/12/2018 Results * Estimated GFR (02/19/2019 10:16 PM CDT) Pathologist [facility] Estimated GFR 68 mL/min/1.73 m2 [place] Comment: GLENIS BOSWELL Catergory Units [facility] [place] Interpretation G1 >=90 Normal or high G2 60-89 Mildly decreased G3a 45-59 Mildly to moderately decreased G3b 30-44 Moderately to severely decreased G4 15-29 Severely decreased G5 <15 Kidney failure The eGFR was calculated using the Chronic Kidney Disease Epidemiology Collaboration (CKD-EPI) equation. Interpretation is based on recommendations of the National Kidney Foundation-Kidney Disease Outcomes Quality Initiative (NKF-KDOQI) published in 2014. Specimen Plasma specimen Performing Organization Address [facility] Ph one Number [facility] DEPARTMENT OF [address] [place] [address] [place] [phone] 58 [facility]OLOGY [facility] [place] [place] GLENIS BOSWELL [address] [place] [address] * Partial thromboplastin time, activated (02/19/2019 10:16 PM CDT) [facility] PTT 48.8 (H) 23.0 - 36.0 sec [place] Comment: GLENIS BOSWELL PTT therapeutic range for [facility] [place] unfractionated heparin is 61.0-112.0 seconds which corresponds to Anti-Xa 0.3-0.7 U/ml. Specimen Blood Performing Organization Address [facility] one Number [facility] DEPARTMENT OF [address] [place] [address] [place] [phone] 58 [facility] [place] GLENIS BOSWELL [address] [place] [address] * Prothrombin time with INR (02/19/2019 10:16 PM CDT) [facility] Prothrombin 26.7 (H) 11.5 - 14.5 sec [place] time GLENIS BOSWELL [facility] [place] INR 2.5 [place] Comment: GLENIS BOSWELL The International Normalized [facility] [place] Ratio (INR) is a therapeutic monitoring tool for patients who are stable on oral anticoagulant therapy. An INR of 2.0-3.0 is suggested for deep vein thrombosis/pulmonary embolism. Specimen Blood Performing Organization Address City/[facility] Ph one Number [facility] DEPARTMENT OF [address] [place] [address] [place] [address] [facility]Y [facility] [place] GLENIS BOSWELL [address] [place] [address] * CBC with platelet and differential (02/19/2019 10:16 PM CDT) WBC 11.12 (H) 4.50 - 11.00 k/uL [facility] RBC 3.93 (L) 4.20 - 5.50 m/uL [facility] HGB 12.1 12.0 - 16.0 g/dL [facility] HCT 39.2 37.0 - 47.0 % [facility] MCV 99.7 82.0 - 100.0 fL [facility] MCH 30.8 27.0 - 34.0 pg [facility] MCHC 30.9 (L) 31.0 - 37.0 g/dL [facility] RDW - SD 47.4 37.0 - 55.0 fL [facility] MPV 11.0 8.8 - 13.2 fL [facility] Platelet count 241 150 - 400 k/uL [facility] Nucleated RBC 0.00 /100 WBC [facility] Neutrophils 79.3 (H) 39.0 - 69.0 % [facility] Lymphocytes 8.1 (L) 25.0 - 45.0 % [facility] Monocytes 6.7 0.0 - 10.0 % [facility] Eosinophils 4.7 0.0 - 5.0 % [facility] Basophils 0.4 0.0 - 1.0 % [facility] Specimen Blood Performing Organization Address City/State/[place] [address] [address] [place], [place] [address] PATHOLOGY AND GENOMIC MEDICINE [facility] [address] [place] [address] [facility] [place] * Comprehensive metabolic panel (02/19/2019 10:16 PM CDT) Sodium 143 135 - 148 mEq/L [facility] Potassium 4.7 3.5 - 5.0 mEq/L [facility] Chloride 99 98 - 112 mEq/L [facility] CO2 29 24 - 31 mEq/L [facility] Anion gap 15@ANIO 7 - 15 mEq/L [facility] BUN 19 8 - 23 mg/dL [facility] Creatinine 0.80 0.50 - 0.90 mg/dL [facility] Glucose 109 (H) 65 - 99 mg/dL [facility] Calcium 9.6 8.8 - 10.2 mg/dL [facility] Protein 7.4 6.3 - 8.3 g/dL [place] Comment: [facility] 4.6-7.0 g/dL 1 week 4.4-7.6 g/dL 7 months-1year 5.1-7.3 g/dL 1-2 years 5.6-7.5 g/dL >3 years 6.0-8.0 g/dL 18-150 6.3-8.3 g/dL Albumin 3.6 3.5 - 5.0 g/dL [facility] A/G ratio 0.9 0.7 - 3.8 [facility] Alkaline 116 (H) 35 - 104 U/L [place] phosphatase [facility] AST 27 10 - 35 U/L [facility] ALT 22 5 - 50 U/L [facility] Total bilirubin 0.6 0.0 - 1.2 mg/dL [facility] Specimen Plasma specimen Performing Organization Address City/State/[facility] Ph one Number [facility] [place] [address] [address] [place], [place] [address] PATHOLOGY AND GENOMIC MEDICINE [facility] [address] [place] [phone] [facility] [place] * CT Pelvis Wo Contrast (02/19/2019 10:14 PM CDT) Specimen Narrative Performed At EXAMINATION: CT PELVIS WO CONTRAST [facility] CLINICAL HISTORY: fall R hip pain TECHNIQUE: Multiple axial images of t he pelvis were obtained without intravenous contrast. The lack of intra venous contrast reduces sensitivity of detecting solid organ disease. Sagittal and coronal computerized reformatted images were also obtained. CT imaging was performed with iterative re construction techniques and/or automated exposure control to reduce radiation do se. COMPARISON: To a plain film from [facility] in the day IMPRESSION: 1. The bones are moderately osteopeni c. Internal fixation screws are noted across the left proximal femur. 2. There is no evidence of acute frac ture or dislocation. [facility]-[id number] Procedure Note Interface, Radiology Results Incoming - [...] 2. There is no evidence of acute fractu re or dislocation. [facility]-[id number] Performing Organization Address City/State/Zipcode Ph one Number [facility] [address] [place] [address] * CT Head Wo Contrast (02/19/2019 10:14 PM CDT) Specimen Narrative Performed At EXAMINATION: CT HEAD WO CONTRAST [facility] CLINICAL HISTORY: fall head injury on coumadin COMPARISON: CT head 07/14/2014 TECHNIQUE: Noncontrast head CT performe d using radiation dose reduction techniques. Technical factors are colt luated and adjusted to ensure appropriate moderation of exposure. Automated dos e management technology is applied to adjust radiation exposure while achieving a diagnostic quality im age. FINDINGS: No evidence of acute intracranial hemor rhage, mass, mass effect, midline shift, or acute infarct. Ventricles and sulci are normal in appe arance for age. Mild suspected chronic microvascular ischemic changes within t he supratentorial white matter. Basal cisterns are clear. Calvarium is intact . Arteriosclerosis of the cavernous and paraclinoid internal carotid arteries and V4 segmen ts of the vertebral arteries. Status post bilateral lens extractions. No significant sinus inflammatory changes. Mastoid air cells are clear. IMPRESSION: 1. No CT evidence of acute intracranial abnormality. [id number] Procedure Note Interface, Radiology Results Incoming - 02/19/2019 10:25 PM [...] No CT evidence of acute intracranial abnormality. [id number] Performing Organization Address City/State/Zipcode Ph one Number [facility] [address] [place] [address] * CT Cervical Spine Wo Contrast (02/19/2019 10:14 PM CDT) Specimen Narrative Performed At EXAM: CT CERVICAL SPINE WO CONTRAST [facility] CLINICAL HISTORY: fall TECHNIQUE: Noncontrast enhanced imaging through the cervical spine was performed with coronal and sagittal reconstructed images. CT scans are performed using radiation dose reduction techniques (iterative reconstruction and/or automated exposur e control). Technical factors are evaluated and adjusted to ensure approp riate moderation of exposure. Automated dose management technology is applied to adjust radiation exposure while achieving a diagnostic quality image. COMPARISON: CT brain, same day FINDINGS: There is straightening of cervical lord otic curvature secondary to patient positioning and mild discogenic degener ative changes to be further discussed below. Alignment and vertebral body hei ght are otherwise within normal limits. There is no evidence of acute fracture, suspicious osteolytic l esion, or suspicious osteoblastic lesion. Evaluation of the disc levels is as fol lows: C2-C3: Less than 2 mm anterolisthesis o f C2 on C3 with uncovering this. No significant thecal sac stenosis. Minima l/mild bilateral foraminal narrowing. C3-C4: No significant thecal sac or for aminal stenosis. C4-C5: Disc height loss, mild bilateral uncovertebral hypertrophy, mild to moderate right and minimal left facet h ypertrophy. Moderate to advanced right and minimal left foraminal narrowing. N o significant thecal sac stenosis. C5-C6: Disc height loss, prominent bila teral uncovertebral hypertrophy, and severe bilateral foraminal narrowing. D orsal osteophyte spurring with minimal thecal sac stenosis (proximal 9.5 mm mi dline AP diameter, axial image 63, series 12). C6-C7: Disc height loss, prominent bila teral uncovertebral hypertrophy, and severe bilateral foraminal narrowing. D orsal slight spurring with mild thecal sac stenosis (approximately 9 mm midlin e AP diameter). C7-T1: No acute thecal sac stenosis or foraminal narrowing. Visualized paraspinal soft tissues are unremarkable. No large, irregular thyroid nodule seen . Visualized lung apices are without evid ence of acute focal pneumonia or concerning nodule. IMPRESSION: No acute osseous abnormality of the cer vical spine. Mild cervical spondylosis with chronic mild thecal sac stenosis a nd severe foraminal narrowing at the C5-C6 and C6 C6-7 levels as described a lisette. No acute thecal sac stenosis or foraminal narrowing. [facility]-[id number] Procedure Note [facility], Radiology Results - 02/19/2019 10:32 PM [...] acute thecal sac stenosis or foraminal narrowing. [facility]-[id number] Performing Organization Address [facility] one Number [facility] [address] [place] [address] * XR Hip 2-3 View Right (02/19/2019 9:50 PM CDT) Specimen Narrative Performed At EXAMINATION: XR HIP 2-3 VIEWS RIGHT [facility] CLINICAL HISTORY: fall R hip pain COMPARISON: None. IMPRESSION: No evidence of acute right hip fracture , dislocation, or joint effusion. 3 screws within the right proximal femur, without apparent radiographic complication. Bone mineralization is de creased. Soft tissues are unremarkable. [facility]-[id number] Procedure Note Interface, Radiology Results Incoming - 02/19/2019 9:56 PM CDT EXAMINATION: XR HIP 2-3 VIEWS RIGHT CLINICAL HISTORY: fall R hip pain COMPARISON: None. IMPRESSION: No evidence of acute right hip fracture, dislocation, or joint effusion. 3 screws within the right proximal femur, without apparent radiographic complication. Bone mineralization is decreased. Soft tissues are unremarkable. [facility]-[id number] Performing Organization Address [facility] one Number [facility] [address] [place] [address] * XR Chest 1 Vw Portable (02/19/2019 9:50 PM CDT) Specimen Narrative Performed At EXAMINATION: XR CHEST 1 VW PORTABLE [facility] CLINICAL HISTORY: SOB COMPARISON: To previous study from 08/09/2014 IMPRESSION: Kyphoplasty is noted involving a midtho racic vertebral body. Cardiomediastinal silhouette is promine nt pulmonary vessels are prominent. Some mild basilar congestive changes may be developing. [facility]-[id number] Procedure Note Interface, Radiology Results Incoming - 02/19/2019 9:54 PM CDT EXAMINATION: XR CHEST 1 VW PORTABLE CLINICAL HISTORY: SOB COMPARISON: To previous study from 08/09/2014 IMPRESSION: Kyphoplasty is noted involving a midthoracic vertebral body. Cardiomediastinal silhouette is prominent pulmonary vessels are prominent. Some mild basilar congestive changes may be developing. [facility]-[id number] Performing Organization Address [facility] one Number [facility] [address] [place] [address] * ECG 12 lead (02/19/2019 9:21 PM CDT) Ventricular 63 [facility] rate Atrial rate 63 [facility] MD interval 176 [facility] QRSD interval 86 [facility] QT interval 448 [facility] QTC interval 458 [facility] P axis 1 99 [facility] QRS axis 1 -27 [facility] T wave axis 74 [facility] EKG impression Sinus rhythm with marked sinus [facility] MU SE arrhythmia-Nonspecific ST abnormality-Abnormal ECG-In automated comparison with ECG of 09-AUG-2014 12:59,-No significant change was found- Specimen Narrative Performed At This result has an attachment that is n ot available. Performing Organization Address [facility] one Number [facility] MUSE [address] [place] [address] * ECG ED Preliminary Interpretation - Not an Order (02/19/2019 9:19 PM CDT) Narrative Performed At Mian Carlton MD 02/20/2019 12:23 A M ECG ED Preliminary Interpretation - Not an Order Performed by: Mian Carlton MD Authorized by: Mian Carlton MD ECG reviewed by ED Physician in the abs ence of a gas appliance installer: yes Interpretation: Interpretation: normal Quality: Tracing quality: Limited by artifac t Rate: ECG rate: 63 ECG rate assessment: normal Rhythm: Rhythm: sinus rhythm Ectopy: Ectopy: none QRS: QRS axis: Left QRS intervals: Normal Conduction: Conduction: normal ST segments: ST segments: Normal T waves: T waves: inverted Inverted: AVR and V1 Other findings: Other findings: prolonged qTc interva l after 12/12/2018 Insurance Type Payer Benefit Subscriber ID Effective Phone Address Plan / Dates Group O [employer] xxxxxxxxxxx 2018- P CHERRY MORA Advance Directives For more information, please contact: [phone] Patient Drafter Cartographic Explanation Type Date Recorded Advance Directives, 02/19/2019 10:21 PM Living Will and Medical Power of Dietary Worker
[2019-12-13 14:09] LABS: BASOPHILS # (AUTO) 0.1 (0.0-0.1); BASOPHILS % 0.7 % (0.0-1.0); EOSINOPHILS % 14.4 % (0.0-6.0); HEMATOCRIT 34.1 % (34.2-44.1); HEMOGLOBIN 10.1 g/dL (12.0-16.0); LYMPHOCYTES # (AUTO) 0.8 (1.0-3.2); LYMPHOCYTES % 11.8 % (18.0-39.1); MEAN CORPUSCULAR HEMOGLOBIN 29.4 pg (28-32); MEAN CORPUSCULAR HGB CONC 29.6 g/dL (31-35); MEAN CORPUSCULAR VOLUME 99.1 fL (81-99); MONOCYTES # (AUTO) 0.6 (0.2-0.8); MONOCYTES % 9.3 % (4.4-11.3); NEUTROPHILS # (AUTO) 4.2 (2.1-6.9); NEUTROPHILS % 63.1 % (38.7-80.0); PLATELET COUNT 151 x10e3/uL (140-360); RED BLOOD COUNT 3.44 x10e6/uL (3.6-5.1); RED CELL DISTRIBUTION WIDTH 14.5 % (11.7-14.4)
[2019-12-13 14:28] LABS: CLARITY,URINE CLEAR (CLEAR); COLOR,URINE YELLOW (YELLOW)
[2019-12-13 14:29] LABS: BILIRUBIN,URINE NEGATIVE (NEGATIVE); KETONES,URINE NEGATIVE (NEGATIVE); LEUKOCYTE ESTERASE ,URINE SMALL (NEGATIVE); NITRITE,URINE NEGATIVE (NEGATIVE); PROTEIN,URINE DIPSTICK NEGATIVE (NEGATIVE); URINE UROBILINOGEN 0.2 mg/dL (0.2 - 1)
--- NOTE | 2019-12-13 14:37 | Diagnostic Imaging Report ---
EXAM: CHEST SINGLE (PORTABLE) DATE: 12/13/2019 1:30 PM INDICATION: Respiratory distress COMPARISON: 04/19/2019 FINDINGS: Left-sided pacing identified with transvenous leads extending to the heart. There diffusely increased interstitial markings and prominence of the central pulmonary vasculature. There is no evidence for large focal consolidation or pneumothorax. There is blunting of the costophrenic angles and trace effusions are suspected. The cardiomediastinal and silhouette is stable in appearance. There are postsurgical changes from plate and screw fixation of the right proximal humerus and vertebral augmentation changes within the mid thoracic spine. No acute osseous abnormality is appreciated. IMPRESSION: Diffusely increased interstitial markings and prominence of the central pulmonary vasculature suggestive of pulmonary edema. Signed by: Dr. Bear Burris MD on 12/13/2019 2:33 PM
[2019-12-13 14:47] LABS: EPITHELIAL CELLS,URINE RARE /LPF
[2019-12-13 14:49] LABS: ALBUMIN 3.8 g/dL (3.5-5.0); ALBUMIN/GLOBULIN RATIO 0.7 (0.8-2.0); ANION GAP 17.9 mmol/L (8-16); CALCIUM 10.1 mg/dL (8.4-10.2); CREATININE, SERUM 0.93 mg/dL (0.57-1.11); POTASSIUM 3.9 mmol/L (3.5-5.1)
[2019-12-13 14:57] LABS: CREATINE KINASE MB 3.2 ng/mL (0-5.0)
--- NOTE | 2019-12-13 15:51 | Emergency Department Note ---
History of Present Illnes History of Present Illness Chief Complaint: Respiratory Stated Complaint: RESP DISTRESS History of Present Illness This is a 84 year old female arrived to the ED with complaints of SOB and leg swelling, worse on exertion. Pt received lasix en route by EMS. 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 Any updates have been documented here. Past Medical History Recent Fever: No Clinical Suspicion of Infectio: No New/Unexplained Change in Ment: No Past Medical History: COPD, VT, A-Fib Other Medical History: OSTEOPOROSIS PATIENT USES HOME O2 AT NIGHT Past Surgical History: Hysterectomy, T&A, Hip Replacement Other Surgery: BACK RIGHT ANKLE RIGHT HIP Social History Smoking Cessation: Former smoker Alcohol Use: None Any Illegal Drug Use: No TB Exposure/Symptoms: No Physically hurt or threatened: No Family History Family history of heart diseas: Yes Other Last Tetanus: UTD Review of Systems Review of Systems Constitutional: no symptoms EENTM: no symptoms Cardiovascular: no symptoms, as per HPI (SOB ) Gastointestinal/Abdominal: no symptoms Genitourinary: no symptoms Musculoskeletal: no symptoms Integumentary: no symptoms Neurological: no symptoms Psychological: no symptoms Endocrine: no symptoms Hematological/Lymphatic: no symptoms Review of other systems All other systems reviewed and negative. Physical Exam Related Data Allergies: Coded Allergies: codeine (Verified Allergy, Unknown, 06/28/16) Triage Vital Signs Vital Signs Date Time Temp Pulse Resp B/P (MAP) Pulse Ox O2 Delivery O2 Flow Rate FiO2 12/13/19 12:54 97.8 106 26 168/92 98 Physical Exam CONSTITUTIONAL Constitutional: well-developed, well-nourished HENT HENT: normocephalic, atraumatic, oropharynx clear/moist, nose normal HENT - Ear: left ext ear normal, right ext ear normal EYES Eyes: PERRL, conjunctivae normal NECK Neck: ROM normal PULMONARY Pulmonary: effort normal, respiratory distress (mild tachypnea, poor air entry b/l bases) CARDIOVASCULAR Cardiovascular: regular rhythm, heart sounds normal, capillary refill normal, normal rate GASTROINTESTINAL Abdominal: soft, nontender, bowel sounds normal GENITOURINARY Genitourinary: exam deferred SKIN Skin: warm, dry MUSCULOSKELETAL Musculoskeletal: ROM normal NEUROLOGICAL Neurological: alert, oriented x 3, no gross motor or sensory deficits PSYCHOLOGICAL Psychiatric/behavioral: mood/affect normal, judgement normal Results Laboratory Result Diagram: 12/13/19 1322 12/13/19 1410 Laboratory Laboratory Tests Test 12/13/19 15:45 12/13/19 14:10 12/13/19 13:22 Arterial Blood Partial Pressure O2 mmHg (80-105) Arterial Blood Oxygen Saturation % (95-98) Sodium Level 141 mmol/L (136-145) Potassium Level 3.9 mmol/L (3.5-5.1) Chloride Level 97 mmol/L (98-107) Carbon Dioxide Level 30 mmol/L (22-29) Anion Gap 17.9 mmol/L (8-16) Blood Urea Nitrogen 20 mg/dL (7-26) Creatinine 0.93 mg/dL (0.57-1.11) Estimat Glomerular Filtration Rate 57 ML/MIN (60-) BUN/Creatinine Ratio 22 (6-25) Glucose Level 110 mg/dL (74-118) Calcium Level 10.1 mg/dL (8.4-10.2) Total Bilirubin 1.0 mg/dL (0.2-1.2) Aspartate Amino Transf (AST/SGOT) 51 IU/L (5-34) Alanine Aminotransferase (ALT/SGPT) 78 IU/L (0-55) Alkaline Phosphatase 164 IU/L (40-150) Creatine Kinase 57 IU/L (29-168) Creatine Kinase MB 3.20 ng/mL (0-5.0) Troponin I 0.011 ng/mL (0-0.300) B-Type Natriuretic Peptide 449.3 pg/mL (0-100) Total Protein 8.9 g/dL (6.5-8.1) Albumin 3.8 g/dL (3.5-5.0) Globulin 5.1 g/dL (2.3-3.5) Albumin/Globulin Ratio 0.7 (0.8-2.0) White Blood Count 6.67 x10e3/uL (4.8-10.8) Red Blood Count 3.44 x10e6/uL (3.6-5.1) Hemoglobin 10.1 g/dL (12.0-16.0) Hematocrit 34.1 % (34.2-44.1) Mean Corpuscular Volume 99.1 fL (81-99) Mean Corpuscular Hemoglobin 29.4 pg (28-32) Mean Corpuscular Hemoglobin Concent 29.6 g/dL (31-35) Red Cell Distribution Width 14.5 % (11.7-14.4) Platelet Count 151 x10e3/uL (140-360) Neutrophils (%) (Auto) 63.1 % (38.7-80.0) Lymphocytes (%) (Auto) 11.8 % (18.0-39.1) Monocytes (%) (Auto) 9.3 % (4.4-11.3) Eosinophils (%) (Auto) 14.4 % (0.0-6.0) Basophils (%) (Auto) 0.7 % (0.0-1.0) Neutrophils # (Auto) 4.2 (2.1-6.9) Lymphocytes # (Auto) 0.8 (1.0-3.2) Monocytes # (Auto) 0.6 (0.2-0.8) Eosinophils # (Auto) 1.0 (0.0-0.4) Basophils # (Auto) 0.1 (0.0-0.1) Absolute Immature Granulocyte (auto 0.05 x10e3/uL (0-0.1) Urine Color Yellow (YELLOW) Urine Clarity Clear (CLEAR) Urine pH 7 (5 - 7) Urine Specific [place] 1.020 (1.010-1.025) Urine Protein Negative (NEGATIVE) Urine Glucose (UA) Negative (NEGATIVE) Urine Ketones Negative (NEGATIVE) Urine Blood Negative (NEGATIVE) Urine Nitrite Negative (NEGATIVE) Urine Bilirubin Negative (NEGATIVE) Urine Urobilinogen 0.2 mg/dL (0.2 - 1) Urine Leukocyte Esterase Small (NEGATIVE) Urine RBC None /HPF (0-5) Urine WBC 6-10 /HPF (0-5) Urine Epithelial Cells Rare /LPF (NONE) Urine Transitional Epithelial Cells None (NONE) Urine Bacteria None /HPF (NONE) Laboratory Tests Test 12/13/19 14:10 12/13/19 13:22 Sodium Level 141 mmol/L (136-145) Potassium Level 3.9 mmol/L (3.5-5.1) Chloride Level 97 mmol/L (98-107) Carbon Dioxide Level 30 mmol/L (22-29) Anion Gap 17.9 mmol/L (8-16) Blood Urea Nitrogen 20 mg/dL (7-26) Creatinine 0.93 mg/dL (0.57-1.11) Estimat Glomerular Filtration Rate 57 ML/MIN (60-) BUN/Creatinine Ratio 22 (6-25) Glucose Level 110 mg/dL (74-118) Calcium Level 10.1 mg/dL (8.4-10.2) Total Bilirubin 1.0 mg/dL (0.2-1.2) Aspartate Amino Transf (AST/SGOT) 51 IU/L (5-34) Alanine Aminotransferase (ALT/SGPT) 78 IU/L (0-55) Alkaline Phosphatase 164 IU/L (40-150) Creatine Kinase 57 IU/L (29-168) Creatine Kinase MB 3.20 ng/mL (0-5.0) Troponin I 0.011 ng/mL (0-0.300) Total Protein 8.9 g/dL (6.5-8.1) Albumin 3.8 g/dL (3.5-5.0) Globulin 5.1 g/dL (2.3-3.5) Albumin/Globulin Ratio 0.7 (0.8-2.0) White Blood Count 6.67 x10e3/uL (4.8-10.8) Red Blood Count 3.44 x10e6/uL (3.6-5.1) Hemoglobin 10.1 g/dL (12.0-16.0) Hematocrit 34.1 % (34.2-44.1) Mean Corpuscular Volume 99.1 fL (81-99) Mean Corpuscular Hemoglobin 29.4 pg (28-32) Mean Corpuscular Hemoglobin Concent 29.6 g/dL (31-35) Red Cell Distribution Width 14.5 % (11.7-14.4) Platelet Count 151 x10e3/uL (140-360) Neutrophils (%) (Auto) 63.1 % (38.7-80.0) Lymphocytes (%) (Auto) 11.8 % (18.0-39.1) Monocytes (%) (Auto) 9.3 % (4.4-11.3) Eosinophils (%) (Auto) 14.4 % (0.0-6.0) Basophils (%) (Auto) 0.7 % (0.0-1.0) Neutrophils # (Auto) 4.2 (2.1-6.9) Lymphocytes # (Auto) 0.8 (1.0-3.2) Monocytes # (Auto) 0.6 (0.2-0.8) Eosinophils # (Auto) 1.0 (0.0-0.4) Basophils # (Auto) 0.1 (0.0-0.1) Absolute Immature Granulocyte (auto 0.05 x10e3/uL (0-0.1) Urine Color Yellow (YELLOW) Urine Clarity Clear (CLEAR) Urine pH 7 (5 - 7) Urine Specific [place] 1.020 (1.010-1.025) Urine Protein Negative (NEGATIVE) Urine Glucose (UA) Negative (NEGATIVE) Urine Ketones Negative (NEGATIVE) Urine Blood Negative (NEGATIVE) Urine Nitrite Negative (NEGATIVE) Urine Bilirubin Negative (NEGATIVE) Urine Urobilinogen 0.2 mg/dL (0.2 - 1) Urine Leukocyte Esterase Small (NEGATIVE) Urine RBC None /HPF (0-5) Urine WBC 6-10 /HPF (0-5) Urine Epithelial Cells Rare /LPF (NONE) Urine Transitional Epithelial Cells None (NONE) Urine Bacteria None /HPF (NONE) Lab results reviewed: Yes Imaging Y: Yes Imaging Comments IMPRESSION: Diffusely increased interstitial markings and prominence of the central pulmonary vasculature suggestive of pulmonary edema. Diagnostics Tests Diagnostic test(s) reviewed: Yes Procedures 12 Lead ECG Interpretation Steamfitter Apprentice: Interpreted by ED physician Prior CLINICAL ADMINISTRATIVE COORDINATOR tracings: not available for review Rhythm: sinus rhythm QRS axis: normal ST Segments Normal: Yes Pacing: aberrant pacer spikes Clinical Impression: non-specific ECG Critical Care Time Total Critical Care Time (min): 45 Time ED Physician saw patient: 13:00 Critical care time exclusive o: separately billable procedures Critcal care necessary due to: respiratory failure Critcal care time spent by me: develop tx plan w patient/surrogate, interpret cardiac output measures, evaluation patient response to tx, examination of patient, order/review laboratory studies, order/review radiographic studies, pulse oximetry, ventilator management Subsequent provider I assumed direction of critical care for this patient from another provider of my specialty. Comments 84 F arrived to the ED with complaints of SOB, placed on BIPAP on arrival. Pt monitored numerous times in setting of acute on chronic respiratory failure, required hospital admission for diuresis Assessment & Plan Assessment & Plan Problems: (1) CHF exacerbation (2) Acute respiratory failure Assessment & Plan 84 F arrived to the ED with complaints of SOB Acute Respiratory Failure CHF exacerbation Reassessment Reassessment Pt improved off of BIPAP stable for admission to [facility] ABG reviewed pH 7.4 Depart Disposition: ADMITTED Last Vital Signs Date Time Temp Pulse Resp B/P (MAP) Pulse Ox O2 Delivery O2 Flow Rate FiO2 12/13/19 13:00 71 18 12/13/19 13:00 100 12/13/19 12:54 97.8 168/92 Home Meds Reported Medications Dronedarone* (MULTAQ 400MG TABLETS*) 400 Mg Tab, 400 MG PO BID for svt, #60 TAB 02/12/19 Teriparatide Inj (FORTEO) 2.4 Ml Syr, 20 MCG SQ DAILY 07/01/16 Cholecalciferol (Vitamin D3) (VITAMIN D3) 2,000 Unit Tablet, 2000 INTLU PO DAILY 07/01/16 Fexofenadine Hcl (ANATOLIY ALLERGY) 180 Mg Tablet, 180 MG PO DAILY 06/29/16 Calcium Carbonate (CALCIUM) 500 Mg Tablet, 500 MG PO DAILY 06/29/16 Temazepam (TEMAZEPAM) 15 Mg Capsule, 7.5 MG PO HS 06/29/16 Simvastatin (SIMVASTATIN) 20 Mg Tablet, 20 MG PO 2100, EA 06/29/16 Metoprolol Succinate (METOPROLOL SUCCINATE) 25 Mg Tab.er.24h, 25 MG PO DAILY 06/29/16 Ascorbic Acid (C-500) 500 Mg Tablet, 500 MG PO DAILY 06/29/16 Furosemide (LASIX) 20 Mg Tablet, 20 MG PO DAILY, #30 TAB 06/29/16 Warfarin Sodium (COUMADIN) 5 Mg Tablet, 7.5 MG PO UD, #7 TAB ON Fridays06/29/16 Warfarin Sodium (WARFARIN SODIUM) 2.5 Mg Tablet, 5 MG PO UD, #30 TAB TAKE 5 MGS ON FRIDAY, FRIDAY, FRIDAY, FRIDAY, FRIDAY, Friday06/29/16 Albuterol/Ipratropium (COMBIVENT INHALER) 14.7 Gm Aero, INH PRN 08/01/13 LANCE MASTERS, DO December 13, 2019 15:36
[2019-12-13] MEDS ORDERED: FUROSEMIDE INJ 10 MG/ML 4 ML VIAL IV ONE (16:30)
[2019-12-13 17:11] LABS: ABG PH 7.42 (7.35-7.45)
[2019-12-13 17:12] LABS: ABG HCO3 33 mmol/L (22-26); ABG PCO2 51 mmHg (35-45)
[2019-12-13 18:29] LABS: INR 2.29; PROTHROMBIN TIME 26.9 seconds (11.9-14.5)
--- NOTE | 2019-12-13 18:55 | NUR ---
PT RECEIVED FROM ER. PT IS AAOX3. CALL LIGHT WITH IN EASY REACH. BED IS LOW AND LOCKED. SIDE RAILS X2. INSTRUCTED PT TO USE CALL LIGHT FOR ALL THE NEEDS. EDUCATED PT ABOUT FALL PRECAUTIONS. PT VERBALIZED UNDERSTANDING. PT DENIES NEEDS AT THIS TIME.
--- NOTE | 2019-12-13 19:00 | NUR ---
BEDSIDE SHIFT REPORT GIVEN TO THE RIPSAW OPERATOR RN. PT DENIED FURTHER NEEDS.
[2019-12-13 20:24] VITALS: BP 188/84
[2019-12-13 20:30] VITALS: BP 177/90
--- NOTE | 2019-12-13 20:30 | NUR ---
Pt arrived to the unit from ED as a new admit (diagnosis of CHF Exacerbation). Pt alert and oriented x3. Ambulatory with assist to use bedside commode prn. Pt on 3L NC and has some minor chest pain. Pt will be medicated accordingly. Call ty within reach.
--- NOTE | 2019-12-13 20:53 | NUR ---
Nurse (Rafael) called Dr. Monroy and informed of elevated BP (177/90) and patient's request for stool softener. MD aware and stated he will put in med orders (see [employer] for details).
[2019-12-13 21:00] VITALS: BP 177/90
[2019-12-13] MEDS ORDERED: CLONIDINE HCL 0.1 MG TAB PO PRN (21:15)
[2019-12-13] MEDS ORDERED: ONDANSETRON HCL INJ 2MG/ML 2ML 2 MG/ML VIAL IV PRN (21:15)
[2019-12-13] MEDS ORDERED: ACETAMINOPHEN 325 MG TAB PO PRN (21:15)
[2019-12-13] MEDS ORDERED: KETOROLAC TROMETHAMINE 30 MG/ML VIAL IV SCH (21:30)
[2019-12-13] MEDS: SIMVASTATIN 20 MG TAB PO SCH (21:30)
[2019-12-13] MEDS: TEMAZEPAM 7.5 MG CAP PO SCH (22:00)
[2019-12-13] MEDS: DOCUSATE SODIUM 100 MG CAP PO SCH (22:00)
[2019-12-13] MEDS: WARFARIN SOD 5 MG TAB PO SCH (22:13)
[2019-12-14] VITALS (8 sets, daily range): BP systolic 106–134; BP diastolic 55–69
--- NOTE | 2019-12-14 00:52 | History and Physical ---
PRIMARY CARE DOCTOR: Del Hampton MD. CHIEF COMPLAINT: Chest pain. HISTORY OF PRESENT ILLNESS: This is an 84-year-old woman who presented initially with left upper chest pleuritic chest pain. This has been going on for 2 weeks now. Initially, she thought that maybe she strained a muscle. However, this continued to get worse. Now, she is just having trouble taking deep breath, despite using nebulizer treatment at home. Currently, her pleuritic chest pain has migrated to xiphoid area. Because of the pleuritic chest pain, the patient has shortness of breath. Denies nausea or vomiting. No fever. No cough. The patient is on Coumadin for her atrial fibrillation. Chronically, she is on oxygen at home. In the emergency room, the patient was briefly put on BiPAP and that made her feel better. The patient also currently is diuresing after 40 mg of IV Lasix given in the emergency room. PAST MEDICAL AND SURGICAL HISTORY: 1. Atrial fibrillation, status post ablation. 2. Dyslipidemia. 3. Hypertension. 4. Parathyroid disorder. 5. Chronic respiratory failure on home oxygen. 6. COPD. 7. Diastolic CHF. 8. Permanent pacemaker status. 9. Previous hip surgery. 10. Previous hysterectomy. MEDICATIONS: Please see medication reconciliation form. ALLERGIES: TO CODEINE AND ALSO AMBIEN MAKES HER HALLUCINATE. FAMILY HISTORY: Significant for coronary artery disease. SOCIAL HISTORY: Quit smoking. REVIEW OF SYSTEMS: A 10-point review of system obtained and nothing else is significant other than what is stated in HPI. PHYSICAL EXAMINATION: VITAL SIGNS: Temperature 97.8. Initially pulse 106, now down to 83. Blood pressure 161/63. Initially respiratory rate was 26, now down to 21. GENERAL: No acute distress. SKIN: No rash. HEENT: Anicteric. Oropharynx is clear. LUNGS: Crackles, not able to take deep breaths. HEART: Regular rate and rhythm. Normal S1, S2. ABDOMEN: Soft, nondistended, and nontender. Normoactive bowel sounds. MUSCULOSKELETAL: Painless range of motion in joints. NEUROLOGIC: Alert and oriented x3. Cranial nerves are II-XII grossly intact. PSYCHIATRIC: No hallucination. LABORATORY DATA: Creatinine 0.9. White count 6.7, hemoglobin 10, platelet count 151. AST 51, ALT 78, alkaline phosphatase is 164. Beta natriuretic peptide is 449. Troponins negative. Urinalysis is unremarkable. Chest x-ray shows pulmonary edema. ASSESSMENT AND PLAN: 1. Progressively worsening of pleuritic chest pain for 2 weeks now. Given the fact that her Coumadin is therapeutic, this makes PE less likely. Potentially, this could be due to acute pulmonary edema. The other possibility is musculoskeletal. We will empirically try one dose of IV Toradol. We will repeat chest x-ray after diuresis today to see if this helps. We will also repeat troponin in the morning. The patient did have a brief acute respiratory failure on top of her chronic respiratory failure. The patient currently is off BiPAP. 2. Hypertensive crisis. I will restart her blood pressure medicine. We will use clonidine p.r.n. as needed. 3. Atrial fibrillation. We will continue her Coumadin. 4. Chronic obstructive pulmonary disease. Currently, no wheeze, stable. 5. Gastrointestinal/deep venous thrombosis prophylaxis, Coumadin. I have updated her primary care doctor about this hospitalization. MD BRANT Jacob/FLORECITA /[id number] cc: [facility]
[2019-12-14 05:48] LABS: INR 2.39; PROTHROMBIN TIME 27.9 seconds (11.9-14.5)
[2019-12-14 05:53] LABS: ANION GAP 15.6 mmol/L (8-16); CALCIUM 9.2 mg/dL (8.4-10.2); CREATININE, SERUM 0.95 mg/dL (0.57-1.11); POTASSIUM 3.6 mmol/L (3.5-5.1)
--- NOTE | 2019-12-14 07:00 | NUR ---
BEDSIDE SHIFT REPORT RECEIVED FROM THE DIRECTOR OF MOBILE MARKETING RN. EDUCATED PT ABOUT FALL PRECAUTIONS. PT VERBALIZED UNDERSTANDING. CALL LIGHT WITH IN EASY REACH. INSTRUCTED PT TO USE CALL LIGHT FOR ALL THE NEEDS. BED IS LOW AND LOCKED. SIDE RAILS X2. BED ALARM IS ON. PT DENIES NEEDS AT THIS TIME.
[2019-12-14] MEDS: ALBUTEROL/IPRATROPIUM 3 ML NEB NEB PRN (07:40)
[2019-12-14] MEDS: DOCUSATE SODIUM 100 MG CAP PO SCH ×2 (08:50→17:13)
[2019-12-14] MEDS: FUROSEMIDE 20 MG TAB PO SCH (08:50)
[2019-12-14] MEDS: METOPROLOL SUCCINATE 25 MG TAB XL PO SCH (08:50)
[2019-12-14] MEDS: DRONEDARONE 400 MG TAB PO SCH ×2 (08:50→17:13)
[2019-12-14] MEDS ORDERED: TERIPARATIDE SQ SCH (09:00)
--- NOTE | 2019-12-14 09:30 | Diagnostic Imaging Report ---
EXAM: CHEST SINGLE (PORTABLE) DATE: 12/14/2019 6:30 AM INDICATION: Shortness of breath, CHF COMPARISON: 12/13/2019 FINDINGS: Left-sided pacing device identified in stable position. The trachea is midline. Again noted are coarsened interstitial markings and prominence of the central pulmonary vasculature slightly improved from the prior examination. There is no evidence for new large focal consolidation or pneumothorax. There is blunting of the costophrenic angles and trace effusions are suspected. No significant volume pleural effusion is appreciated. The cardiomediastinal silhouette is stable in appearance. Post surgical changes of the right proximal humerus again noted. Vertebral augmentation changes noted within the mid thoracic spine. No acute osseous abnormality is identified. IMPRESSION: No significant interval change from 12/13/2019. Grossly stable findings of interstitial edema again noted. Signed by: Dr. Bear Burris MD on 12/14/2019 9:26 AM
[2019-12-14] MEDS ORDERED: FUROSEMIDE INJ 10 MG/ML 2 ML VIAL IV ONE (10:00)
--- NOTE | 2019-12-14 10:00 | NUR ---
CALL RECEIVED FROM LAB REGARDING COVID TEST SWAB RECEIVED FROM ER BUT NO ORDER. NO NEED OF COVID TEST PER DR. MARINELLI. INFORMED THE SAME TO MICROBIOLOGY.
[2019-12-14] MEDS ORDERED: FUROSEMIDE INJ 10 MG/ML 4 ML VIAL IV SCH ×2 (14:15→20:35)
--- NOTE | 2019-12-14 18:25 | Consultation ---
DATE OF CONSULTATION: 12/14/2019 REASON FOR CONSULTATION: Chest pain. HISTORY OF PRESENT ILLNESS: This is an 84-year-old female, well known to practice, last seen in April 2019. History of atrial fibrillation status post AV tami ablation, status post biventricular pacemaker in April 2019, COPD, hypertension, and hyperlipidemia. The patient is being followed by [facility], Dr. Fleming. The patient presents to [facility] ER with complaints of 2 weeks history of chest pain. Cardiac enzymes negative x2. Chest x-ray showing pulmonary edema. The patient has been diuresed with Lasix. Cardiology is consulted for a given chest pain. The patient is seen in room, reports left-sided chest pain for the past 2 weeks, worse with deep breathing. However, prior to coming into the hospital, reported chest pain on the right side. Therefore came to the hospital for further evaluation. Chest x-ray showing pulmonary edema. INR was therapeutic initially, now subtherapeutic. The patient reports chest pain has improved since being in the hospital. However, it continues with right-sided pain with deep breathing. Denies any exertional chest pain. The patient reports being compliant with OAC therapy and in fact reports her therapy was decreased recently by her primary box shook patcher. PAST MEDICAL HISTORY: 1. Atrial fibrillation, status post AV tami ablation 04/2019, status post BiV pacemaker [facility]. 2. Hyperlipidemia. 3. Hypertension. 4. COPD, using home oxygen. 5. Diastolic heart failure. PAST SURGICAL HISTORY: Left heart catheterization in 2012 reported with minimal disease, hysterectomy, right hip surgery, right shoulder surgery, bilateral ankle surgery, biventricular pacemaker implantation in 04/2019. SOCIAL HISTORY: She lives alone. Former smoker. No alcohol use. FAMILY HISTORY: Mother in her 30s of unknown reason. Father unknown. HOME MEDICATIONS: Include Combivent inhaler, Multaq 400 mg b.i.d., Lasix 20 mg daily, metoprolol 25 mg daily, simvastatin 20 mg daily, temazepam 7.5 mg at bedtime, and warfarin 7.5 mg alternating with 5 mg every other day. ALLERGIES: TO CODEINE. REVIEW OF SYSTEMS: GENERAL: Denies any weight changes, fatigue, weakness, fevers, chills, or night sweats. SKIN: No rashes or sores. HEENT: Denies any nausea, vomiting, vision change, blurred vision, double vision, epistaxis, sore throat, or swollen neck. CARDIAC: Denies any exertional chest pain, however, chest pain with deep breathing. Positive for dyspnea on exertion. Denies any orthopnea, PND, or lower extremity edema. RESPIRATORY: Positive shortness of breath. Denies any wheezing, coughing, or hemoptysis. GI: Reports good appetite. No nausea, vomiting, diarrhea, constipation, melena, tarry or bloody stools. URINARY: Denies any frequency, urgency, dysuria, or hematuria. VASCULAR: Denies lower extremity edema or claudication. MUSCULOSKELETAL: Generalized joint pains, back pains. NEUROLOGIC: Denies any numbness, tingling, tremors, paralysis, blackout, or seizures. HEMATOLOGY: Denies easy bruising or bleeding. PHYSICAL EXAMINATION: VITAL SIGNS: Height 59 inches, weight 114 pounds. Temperature 97.3, pulse 70, respiratory rate 24, blood pressure 111/57, and pulse ox 96% on 3 L nasal cannula. GENERAL: Appears stated age, reliable informant, no acute distress. SKIN: No rashes or bruises noted. HEENT: Normocephalic. Pupils are equal, round, and reactive to light. Extraocular movements intact. Trachea midline. No JVD. Oral mucosa pink. HEART: Regular rate and rhythm. Pacemaker in left chest wall. PMI 5th intercostal space. LUNGS: Bilateral breath sounds clear to auscultation. Decreased entry and exit airway sounds. ABDOMEN: Soft, nontender, and nondistended. No organomegaly noted. MUSCULOSKELETAL: No lower extremity edema noted. VASCULAR: +2 radial pulses bilaterally, +1 DP and PT pulses bilaterally. NEUROLOGIC: Cranial nerve 2 through 12 seem intact. LABORATORY DATA: White count 6, hemoglobin 10, hematocrit 34, and platelets 151. Sodium 140, potassium 3.6, chloride 98, bicarb 30, BUN 2.8, creatinine 0.9, and magnesium 2. Troponin 0.01, next 0.01. BNP 875. Chest x-ray showing pulmonary congestion. EKG showing ventricular paced rhythm. Initial INR 2.2. ASSESSMENT: 1. Chest pain, pleuritic in nature. 2. Chronic obstructive pulmonary disease. 3. Atrial fibrillation, status post AV node ablation with biventricular pacemaker implantation. 4. Hypertension. 5. Hyperlipidemia. 6. [id number] diastolic dysfunction. PLAN: The patient presents with chest pain for 2 weeks, atypical for cardiac, worse with deep breathing. Reports being compliant with her OAC therapy. INR initially 2.2, CARTER unlikely. Chest pain seems more musculoskeletal in nature. Recommend pain control with anti-inflammatories. We will continue the patient on OAC therapy with a goal of 2 to 3. Continue beta-elizabeth therapy. We will get an echo to evaluate heart structurally. Continue gentle diuresis. Further recommendations as clinical course dictates. Thank you very much for this consult. Dictated by Ryan Albarran NP Seen and examined Agree with note Gloria Hugo MD DC/FLORECITA /[id number] MTDD
--- NOTE | 2019-12-14 19:00 | NUR ---
BEDSIDE SHIFT REPORT GIVEN TO THE SEAT BUILDER RN. PT DENIED FURTHER NEEDS.
[2019-12-14] MEDS: SIMVASTATIN 20 MG TAB PO SCH (20:38)
[2019-12-14] MEDS: WARFARIN SOD 5 MG TAB PO SCH (20:38)
[2019-12-14] MEDS: TEMAZEPAM 7.5 MG CAP PO SCH (20:38)
[2019-12-15] VITALS (8 sets, daily range): BP systolic 102–164; BP diastolic 60–83
--- NOTE | 2019-12-15 02:27 | Diagnostic Imaging Report ---
EXAM: CT Chest WITH contrast (PE Protocol) INDICATION: Chest pain COMPARISON: None TECHNIQUE: Chest was scanned utilizing a multidetector helical scanner from the lung apex through the level of the diaphragm after administration of IV contrast. Thin section reconstructions were obtained with special concentration on the pulmonary arteries. Coronal and sagittal reformations were obtained. Pulmonary embolism protocol was performed. IV CONTRAST: 100 mL of Omnipaque 350 COMPLICATIONS: None RADIATION DOSE: Total DLP: 642 mGy*cm Estimated effective dose: (DLP x 0.014 x size factor) mSv CTDIvol has been reviewed. It is below the limits set by the Radiation Protocol Committee (RPC). Dose modulation, iterative reconstruction, and/or weight based adjustment of the mA/kV was utilized to reduce the radiation dose to as low as reasonably achievable. FINDINGS: LINES/ TUBES: Left mechanical cardiac device. LUNGS AND AIRWAYS: No filling defect is identified within the pulmonary arteries to the segmental level. Diffuse groundglass opacity throughout the lungs. Bibasilar atelectasis and/or scarring. PLEURA: The pleural spaces are clear. HEART AND MEDIASTINUM: The heart is enlarged. No pericardial effusion. No gross thoracic adenopathy. Advanced calcified atherosclerosis. UPPER ABDOMEN: No acute abnormality. 1 cm hypodense lesion of the hepatic dome, possibly a cyst or hemangioma. BONES: Multiple high-grade thoracic vertebral body compression deformities with associated kyphosis. Vertebroplasty changes at T9. SOFT TISSUES: Unremarkable. IMPRESSION: 1. No pulmonary embolus. 2. Diffuse groundglass pulmonary opacities most suggestive of interstitial pulmonary edema. Atypical infection is also possible. 3. Cardiomegaly. Signed by: Kvng Taylor MD on 12/15/2019 2:22 AM
[2019-12-15 05:22] LABS: BASOPHILS % 0.5 % (0.0-1.0); EOSINOPHILS # (AUTO) 0.1 (0.0-0.4); EOSINOPHILS % 0.8 % (0.0-6.0); HEMATOCRIT 37.2 % (34.2-44.1); HEMOGLOBIN 11.5 g/dL (12.0-16.0); LYMPHOCYTES # (AUTO) 0.9 (1.0-3.2); LYMPHOCYTES % 12.5 % (18.0-39.1); MEAN CORPUSCULAR HGB CONC 30.9 g/dL (31-35); MEAN CORPUSCULAR VOLUME 97.1 fL (81-99); MONOCYTES # (AUTO) 1.1 (0.2-0.8); MONOCYTES % 14.4 % (4.4-11.3); NEUTROPHILS # (AUTO) 5.2 (2.1-6.9); NEUTROPHILS % 71.5 % (38.7-80.0); PLATELET COUNT 274 x10e3/uL (140-360); RED BLOOD COUNT 3.83 x10e6/uL (3.6-5.1); RED CELL DISTRIBUTION WIDTH 14.5 % (11.7-14.4)
[2019-12-15 05:37] LABS: INR 4.33
[2019-12-15 05:56] LABS: ALBUMIN 2.9 g/dL (3.5-5.0); ALBUMIN/GLOBULIN RATIO 0.7 (0.8-2.0); ANION GAP 13.1 mmol/L (8-16); CALCIUM 8.3 mg/dL (8.4-10.2); CHOL/HDL RATIO 2.7 (3.0-3.6); CREATININE, SERUM 1.14 mg/dL (0.57-1.11); POTASSIUM 3.1 mmol/L (3.5-5.1)
[2019-12-15 06:03] LABS: THYROID STIMULATING HORMONE 0.505 uIU/mL (0.350-4.940)
--- NOTE | 2019-12-15 06:24 | NUR ---
Called Tanvi Soni to report PT = 45 and INR = 4.33 and also [place] level of 3.1. MD aware and ordered to d/c Coumadin and give patient KCL 40meq PO x1 now.
[2019-12-15] MEDS ORDERED: POTASSIUM CHLORIDE 20 MEQ TAB CR PO ONE (06:50)
--- NOTE | 2019-12-15 07:00 | NUR ---
BEDSIDE SHIFT REPORT RECEIVED FROM THE SPORTS EQUIPMENT RACKER RN. EDUCATED PT ABOUT FALL PRECAUTIONS. PT VERBALIZED UNDERSTANDING. CALL LIGHT WITH IN EASY REACH. INSTRUCTED PT TO USE CALL LIGHT FOR ALL THE NEEDS. BED IS LOW AND LOCKED. SIDE RAILS X2. BED ALARM IS ON. PT DENIES NEEDS AT THIS TIME.
--- NOTE | 2019-12-15 07:17 | Diagnostic Imaging Report ---
EXAMINATION: CHEST SINGLE (PORTABLE) INDICATION: ^SOB ^[id number] ^[id number] COMPARISON: CT chest 12/14/2019 FINDINGS: AP view TUBES and LINES: Unchanged left mechanical cardiac device. LUNGS: Stable pulmonary interstitial edema. No focal lung consolidation. PLEURA: No pleural effusion or pneumothorax. HEART AND MEDIASTINUM: Stable cardiomegaly. BONES AND SOFT TISSUES: The known thoracic vertebral body compression deformities are poorly visualized on this examination. Vertebroplasty changes again noted. UPPER ABDOMEN: No free air under the diaphragm. IMPRESSION: Stable cardiomegaly with interstitial pulmonary edema. Signed by: Kvng Taylor MD on 12/15/2019 7:13 AM
[2019-12-15] MEDS: ALBUTEROL/IPRATROPIUM 3 ML NEB NEB PRN (07:30)
[2019-12-15] MEDS: DOCUSATE SODIUM 100 MG CAP PO SCH ×2 (09:08→17:03)
[2019-12-15] MEDS: FUROSEMIDE 20 MG TAB PO SCH (09:09)
[2019-12-15] MEDS: METOPROLOL SUCCINATE 25 MG TAB XL PO SCH (09:09)
[2019-12-15] MEDS: DRONEDARONE 400 MG TAB PO SCH ×2 (09:09→17:03)
[2019-12-15] MEDS ORDERED: AZITHROMYCIN 250 MG TAB PO SCH (09:45)
[2019-12-15] MEDS: LACTOBACILLUS ACIDOPHILUS CAPSULE PO SCH ×2 (10:00→17:03)
[2019-12-15] MEDS: TRAMADOL HCL 50 MG TAB PO PRN ×2 (10:01→17:04)
[2019-12-15] MEDS: DOXYCYCLINE HYCLATE TABLET 100 MG TAB PO SCH ×2 (10:01→21:23)
--- NOTE | 2019-12-15 11:57 | NUR ---
CONSULT AST MEDICAL AND SURGICAL HISTORY: 1. Atrial fibrillation, status post ablation. 2. Dyslipidemia. 3. Hypertension. 4. Parathyroid disorder. 5. Chronic respiratory failure on home oxygen. 6. COPD. 7. Diastolic CHF. 8. Permanent pacemaker status. 9. Previous hip surgery. 10. Previous hysterectomy. MEDICATIONS: Please see medication reconciliation form. ALLERGIES: TO CODEINE AND ALSO AMBIEN MAKES HER HALLUCINATE. FAMILY HISTORY: Significant for coronary artery disease. SOCIAL HISTORY: Quit smoking. REVIEW OF SYSTEMS: A 10-point review of system obtained and nothing else is significant other than what is stated in HPI. [id number]
--- NOTE | 2019-12-15 17:55 | NUR ---
CALL RECEIVED FROM DR. PAEZ. NEW ORDER FOR COVID TEST. INFORMED THE SAME TO RENEWABLE ENERGY TRADER.
--- NOTE | 2019-12-15 18:40 | NUR ---
CALL RECEIVED FROM [facility]. STAT ORDER NEEDED FOR COVID TEST PER CNO AND CASE MANAGEMENT. NEW ORDER STAT PLACED AND PAGED LAB REGARDING THE SAME.
--- NOTE | 2019-12-15 19:00 | NUR ---
BEDSIDE SHIFT REPORT GIVEN TO THE EXTRACT MIXER RN. PT DENIED FURTHER NEEDS.
--- NOTE | 2019-12-15 19:10 | NUR ---
Received patient awake, not in distress, on O2 support via nasal cannula, call light within easy reach, advised to call anytime when needed. Will continue to monitor patient.
[2019-12-15] MEDS: TEMAZEPAM 7.5 MG CAP PO SCH (21:23)
[2019-12-15] MEDS: SIMVASTATIN 20 MG TAB PO SCH (21:23)
--- NOTE | 2019-12-15 23:31 | Consultation ---
DATE OF CONSULTATION: REASON FOR CONSULTATION: Pneumonia. HISTORY OF PRESENT ILLNESS: This patient is a very pleasant 84-year-old white female, comes into the emergency room with shortness of breath. The patient was admitted on December 13. The patient has left upper chest pain, pleuritic in nature for 2 weeks. The patient denies any fever or chills. Denies any cough. She was admitted. She was seen by Cardiology. I am asked to see her. She is currently lying in bed comfortably. She says she is feeling better. PAST MEDICAL HISTORY: Otherwise atrial fibrillation, hyperlipidemia, hypertension, COPD, congestive heart failure, pacemaker. PAST SURGICAL HISTORY: As above. ALLERGIES: NKA. SOCIAL HISTORY: There is no smoking, drug abuse, or alcohol abuse. PHYSICAL EXAMINATION: GENERAL: Currently alert, oriented, does not seem in acute distress. VITAL SIGNS: Stable, currently afebrile. HEENT: She is not icteric. NECK: Supple. CHEST: Clear. ABDOMEN: Soft. Bowel sounds present. No tenderness. EXTREMITIES: No edema. SKIN: No rash. The patient was seen by Cardiology. The chest pain felt to be muscular. LABORATORY DATA: White count 7.34, hemoglobin 11. Sodium 140, potassium 3.1, creatinine 1.14. BNP of 875. IMPRESSION: 1. Chest pain, probably muscular. 2. Abnormal chest CT. No fever. No chills. We will discuss with Cardiology and Internal Medicine. 3. Congestive heart failure, stable. 4. Atrial fibrillation, stable. 5. Hyperlipidemia, stable. 6. Chronic obstructive pulmonary disease. 7. We will follow. MD EVANS Chu/FLORECITA /[id number]
[2019-12-16] VITALS (8 sets, daily range): BP systolic 115–147; BP diastolic 53–81
[2019-12-16] MEDS: TRAMADOL HCL 50 MG TAB PO PRN ×2 (00:02→05:54)
[2019-12-16 05:00] LABS: BASOPHILS # (AUTO) 0.1 (0.0-0.1); EOSINOPHILS # (AUTO) 1.2 (0.0-0.4); EOSINOPHILS % 18.7 % (0.0-6.0); HEMATOCRIT 37.2 % (34.2-44.1); HEMOGLOBIN 11.3 g/dL (12.0-16.0); LYMPHOCYTES # (AUTO) 0.8 (1.0-3.2); LYMPHOCYTES % 12.4 % (18.0-39.1); MEAN CORPUSCULAR HEMOGLOBIN 29.7 pg (28-32); MEAN CORPUSCULAR HGB CONC 30.4 g/dL (31-35); MEAN CORPUSCULAR VOLUME 97.6 fL (81-99); MONOCYTES # (AUTO) 0.8 (0.2-0.8); MONOCYTES % 12.4 % (4.4-11.3); NEUTROPHILS # (AUTO) 3.4 (2.1-6.9); PLATELET COUNT 259 x10e3/uL (140-360); RED BLOOD COUNT 3.81 x10e6/uL (3.6-5.1); RED CELL DISTRIBUTION WIDTH 14.5 % (11.7-14.4)
[2019-12-16 05:17] LABS: INR 5.68
[2019-12-16 05:19] LABS: ALANINE AMINOTRANSFERASE 125 IU/L (0-55); ALBUMIN/GLOBULIN RATIO 0.7 (0.8-2.0); ALKALINE PHOSPHATASE 121 IU/L (40-150); BLOOD UREA NITROGEN 33 mg/dL (7-26); BUN/CREATININE RATIO 42 (6-25); CALCIUM 9.4 mg/dL (8.4-10.2); CARBON DIOXIDE 33 mmol/L (22-29); CHLORIDE 101 mmol/L (98-107); CREATININE, SERUM 0.78 mg/dL (0.57-1.11); EST GLOMERULAR FILTRATION RATE > 60 ML/MIN (60-); GLUCOSE 80 mg/dL (74-118); SODIUM 141 mmol/L (136-145)
--- NOTE | 2019-12-16 05:58 | NUR ---
Called Dr. Monroy, relayed critical lab results, PT 56.0, INR 5.68. No order given at this time. Will continue to monitor patient for bleeding
--- NOTE | 2019-12-16 07:17 | NUR ---
bedside rounding done with dayshift nurse, call light within easy reach
[2019-12-16] MEDS: FUROSEMIDE 20 MG TAB PO SCH (09:47)
[2019-12-16] MEDS: DOCUSATE SODIUM 100 MG CAP PO SCH ×2 (09:47→15:42)
[2019-12-16] MEDS: DRONEDARONE 400 MG TAB PO SCH ×2 (09:47→17:25)
[2019-12-16] MEDS: METOPROLOL SUCCINATE 25 MG TAB XL PO SCH (09:47)
[2019-12-16] MEDS: DOXYCYCLINE HYCLATE TABLET 100 MG TAB PO SCH ×2 (09:47→20:35)
[2019-12-16] MEDS: LACTOBACILLUS ACIDOPHILUS CAPSULE PO SCH ×2 (09:47→15:42)
[2019-12-16] MEDS ORDERED: ONDANSETRON HCL 4 MG ORAL DISINTEGRATING TAB PO PRN ×2 (10:00)
--- NOTE | 2019-12-16 12:30 | Progress Note ---
DATE: SUBJECTIVE: The patient is seen and evaluated. Available labs and notes reviewed. Discussed with Dr. Sneed. REVIEW OF SYSTEMS: States that the breathing has improved, but remains still with some chest pain, which is "better with medications." PHYSICAL EXAMINATION: VITAL SIGNS: Temperature 97.5, pulse is 90, respiration 18, and blood pressure 134/77. GENERAL: Alert and oriented, weak, and thin built with some arthritic changes of the digits. CV: S1 and S2. CHEST: Decreased breath sounds. Equal expansion. No acute distress. ABDOMEN: Soft and nontender. No distention. HEENT: Moist. No pallor. No JVD. EXTREMITIES: Weak and thin. MEDICATIONS: Medication list reviewed and as far as Infectious Disease point of view, the patient is currently on doxycycline. LABORATORY STUDIES: White count 6.19, hemoglobin 11.3, and platelet 259. Sodium 141, potassium 4, and creatinine 0.78. Serology; coronavirus PCR, 12/15/2019 is pending. MICROBIOLOGY: No new microbiology available. RADIOLOGY: Chest x-ray from 12/14, showed stable cardiomegaly with interstitial pulmonary edema. ASSESSMENT AND PLAN: 1. Chest pain. 2. Abnormal CT of the chest. 3. Congestive heart failure. 4. Atrial fibrillation. 5. Hyperlipidemia. 6. Chronic obstructive pulmonary disease. 7. Poor oral intake. 8. Debility. 9. Pulmonary edema per chest x-ray. 10. CT reviewed again on 12/15/2019. 11. Remains on doxycycline. Continue to monitor the patient clinically, follow with the labs, PT/OT, protein-calorie optimization. Please refer to chart for more information. 12. Discussed with Dr. Sneed in details. Dictated by Minh Alvarado PA-C (Al) Pool Sneed MD /MODL /[id number]
[2019-12-16] MEDS ORDERED: FUROSEMIDE INJ 10 MG/ML 2 ML VIAL IV ONE (13:55)
--- NOTE | 2019-12-16 15:13 | NUR ---
Nutrition Screen Note RD Recommendation for Physician: - Continue Cardiac diet - Ensure Enlive once daily per pt request Plan of Care: RD following, monitoring for tolerance and adequacy Nutrition reason for involvement: DX: CHF Primary Diagnose(s): CHF exacerbation PMH: fibe, HTN, dyslipidemia, COPD, CHF, pacemaker, parathyroid disorder Ht: 59 in Wt: 114 lb BMI: 23 kg/m2 IBW: [address] Assessment: (12/15) 84 YOF admitted for CHF exacerbation, seen today per admit dx. Pt reports good appetite and intake currently and OPHTHALMIC TECH, reports that she drinks Boost once a day. Pt requesting supplement, receptive to Ensure Enlive- RD to order. Pt denies wt loss, reports UBW of 110-114#. Pt denies any N/V/C/D. Pt declined diet education, states she follows a low sodium diet at home. Chart reviewed. Labs and meds reviewed. Will continue to monitor. Current Diet: Cardiac Malnutrition Evaluation (12/16/19) The patient does not meet criteria for a specified degree of malnutrition at this time. Will re-evaluate at follow-up as appropriate. Diet Education Needs Assessment: Diet education indicated, pt declined. Diet tolerance: pt tolerating Nutrition Care Level: low Signed: Aracely Royal RD, LD, [facility]
--- NOTE | 2019-12-16 19:25 | NUR ---
walking rounds complete, pt stable at shift change, bedside report given to on coming nurse.
[2019-12-16] MEDS: SIMVASTATIN 20 MG TAB PO SCH (20:35)
[2019-12-16] MEDS: TEMAZEPAM 7.5 MG CAP PO SCH (20:35)
[2019-12-17] VITALS (8 sets, daily range): BP systolic 124–159; BP diastolic 67–92
[2019-12-17 05:30] LABS: INR 5.53; PROTHROMBIN TIME 54.8 seconds (11.9-14.5)
--- NOTE | 2019-12-17 06:03 | Diagnostic Imaging Report ---
EXAMINATION: CHEST SINGLE (PORTABLE) INDICATION: Shortness of breath COMPARISON: None FINDINGS: AP view TUBES and LINES: Left mechanical cardiac device. LUNGS: No new consolidation. Stable mild interstitial pulmonary edema. PLEURA: Unchanged questionable trace right pleural effusion. HEART AND MEDIASTINUM: The cardiac silhouette is enlarged. BONES AND SOFT TISSUES: No acute osseous lesion. Soft tissues are unremarkable. UPPER ABDOMEN: No free air under the diaphragm. IMPRESSION: Stable exam. Unchanged cardiomegaly with mild interstitial pulmonary edema. Signed by: Kvng Taylor MD on 12/17/2019 6:00 AM
--- NOTE | 2019-12-17 06:17 | NUR ---
Received critical labs PT 54.8, INR 5.53. Spoke to Dr. Staci Hugo- new order to d/c coumadin.
[2019-12-17] MEDS: METOPROLOL SUCCINATE 25 MG TAB XL PO SCH (09:00)
[2019-12-17] MEDS: FUROSEMIDE 20 MG TAB PO SCH (09:00)
[2019-12-17] MEDS: DRONEDARONE 400 MG TAB PO SCH ×2 (09:00→17:47)
[2019-12-17] MEDS: LACTOBACILLUS ACIDOPHILUS CAPSULE PO SCH ×2 (09:00→17:47)
[2019-12-17] MEDS: DOCUSATE SODIUM 100 MG CAP PO SCH ×2 (09:00→17:46)
[2019-12-17] MEDS ORDERED: PHYTONADIONE 1 MG/0.5 ML AMP SQ ONE (11:40)
--- NOTE | 2019-12-17 12:10 | NUR ---
vitamin k given sub q pt tolerated well.
--- NOTE | 2019-12-17 12:18 | Progress Note ---
DATE: SUBJECTIVE: The patient is seen and evaluated. Available labs and notes reviewed. Discussed with Dr. Sneed in details. REVIEW OF SYSTEMS: The patient states that her left-sided chest pain has improved, but not much on right side. She had no significant shortness of breath. Denies fever, chills, nausea, vomiting, rash, cough, dysuria. PHYSICAL EXAMINATION: VITAL SIGNS: Temperature is 98, pulse is 70, respiration 19, blood pressure 140/78. GENERAL: Alert and oriented, no acute distress. CV: S1, S2. CHEST: Equal expansion. Decreased breath sounds bilaterally worse on the right side. ABDOMEN: Soft, nontender. HEENT: Moist. No pallor. No JVD. EXTREMITIES: With arthritic changes of the digits. MEDICATION/ANTIBIOTICS: The patient is on doxycycline p.o. 100 mg twice a day. LABORATORY STUDIES: No new CBC or BMP from today. Serology; coronavirus PCR 12/15/2019 is pending. MICROBIOLOGY: No new microbiology. RADIOLOGY STUDIES: Chest x-ray from today showed stable exam, unchanged cardiomegaly with mild interstitial pulmonary edema. ASSESSMENT AND PLAN: 1. Chest pain in patient with pulmonary edema. 2. Abnormal CT of the chest-follow up with COVID-19 screening test. The patient is afebrile with not much of a cough. 3. Atrial fibrillation. 4. Chronic obstructive pulmonary disease. 5. Hyperlipidemia. 6. Debility. Remains on doxycycline p.o. twice a day. Acute kidney injury, improving after diuretics stopped. Currently monitor patient clinically. Follow up with the labs and serology. Thank you for this dictation. Discussed with Dr. Sneed in details. Please refer to chart for more information. Dictated by Minh Alvarado PA-C (Al) Pool Sneed MD /MODL /[id number]
--- NOTE | 2019-12-17 13:51 | NUR ---
SPOKE WITH PT ABOUT DISCHARGE AND HOME HEALTH, SHE STATES SHE HAS HAD TRANSITIONS IN PAST, SIGNED CHOICE FOR THEM AGAIN, FILED IN CHART AND FAXED CLINICALS TO [phone]
--- NOTE | 2019-12-17 19:10 | NUR ---
walking rounds complete, pt alert resp even and unlabored at shift change, report given to oncoming nurse.
[2019-12-17] MEDS: SIMVASTATIN 20 MG TAB PO SCH (20:56)
[2019-12-17] MEDS: TEMAZEPAM 7.5 MG CAP PO SCH (20:56)
[2019-12-17] MEDS ORDERED: WARFARIN SOD 5 MG TAB PO SCH (21:00)
[2019-12-18] VITALS: BP 136/74
[2019-12-18 04:00] VITALS: BP 129/75
[2019-12-18 06:49] LABS: INR 4.64
--- NOTE | 2019-12-18 07:00 | NUR ---
BEDSIDE SHIFT REPORT RECEIVED FROM REPAIR SERVICE DISPATCHER RN. PT DENIES NEEDS AT THIS TIME.
[2019-12-18 07:27] LABS: PROTHROMBIN TIME 47.6 seconds (11.9-14.5)
[2019-12-18 08:06] VITALS: BP 117/66
[2019-12-18 09:00] VITALS: BP 117/66
[2019-12-18] MEDS: DOCUSATE SODIUM 100 MG CAP PO SCH (09:02)
[2019-12-18] MEDS: DRONEDARONE 400 MG TAB PO SCH (09:02)
[2019-12-18] MEDS: LACTOBACILLUS ACIDOPHILUS CAPSULE PO SCH (09:02)
[2019-12-18] MEDS: FUROSEMIDE 20 MG TAB PO SCH (09:02)
[2019-12-18] MEDS: METOPROLOL SUCCINATE 25 MG TAB XL PO SCH (09:03)
[2019-12-18 11:29] VITALS: BP 108/61
--- NOTE | 2019-12-18 15:18 | Discharge Summary ---
PRIMARY CARE DOCTOR: Dr. Del Hampton. FINAL DIAGNOSIS: Pleuritic chest pain of unclear etiology. SECONDARY DIAGNOSES: 1. Mild acute renal failure due to over-diuresis, resolved. 2. Supratherapeutic INR, resolving. 3. Chronic respiratory failure due to chronic obstructive pulmonary disease, stable. CONSULTANTS: 1. Dr. Sneed, Infectious Disease. 2. Dr. Hugo, Cardiology. PROCEDURE/STUDIES PERFORMED: 1. Echocardiogram shows normal EF. 2. CTA of the chest, no PE, but has diffuse ground-glass pulmonary opacities, most suggestive of interstitial pulmonary edema. However, atypical infection is also possible. HISTORY: Per H and P. HOSPITAL COURSE: The patient was admitted. The patient was diuresed with IV Lasix to the point that her creatinine bumped, however, clinically the patient did not feel better and the chest x-ray did not improve as well. Given that chest CT shows ground-glass opacity, doxycycline was started for couple of days. No improvement either. COVID was checked and it is negative; however, there is a possibility of false negative. Her symptoms started almost 3 weeks ago. On admission, IV Toradol was tried as well, which did not help, which argued against musculoskeletal. Currently, her creatinine is back to her baseline. For some reason, continuing on her home Coumadin, her INR went up to 5 point some thing and this was held, now slowly coming down. Today, her INR is 4. The patient was told to continue to hold her Coumadin and follow up with [facility]. The patient will also follow up with her PCP in 1 week. I have updated her PCP about this hospitalization. The patient was seen and examined today. It took 31 minutes total to discharge this patient. CONDITION ON DISCHARGE: Improved. DISCHARGE MEDICATIONS: Please see medication reconciliation form. MD BRANT Jacob/FLORECITA /[id number] cc: [facility]
[2019-12-18 15:33] VITALS: BP 137/67
--- NOTE | 2019-12-18 16:09 | NUR ---
OK WITH DR. CHAMBERS FOR PT TO DISCHARGE HOME. FOLLOW UP WITH [facility] FRIDAY.
--- NOTE | 2019-12-18 17:00 | NUR ---
COPIES MADE OF PT'S LABS FOR PT TAKE TO [facility] PER DR. MARINELLI'S REQUEST AND GIVEN TO THE PT WITH INSTRUCTION.
== END 2019-12-18 17:05 | disposition home or self-care (01) | DRG 291 ==
LOC: ER 12:52 → ERHOLD 16:17 → MED/SURG2 19:21 → OBSVTOIN 12-15 17:36
PROVIDERS: ADMIT Internal Medicine; ATTEND Internal Medicine
DX: I11.0 Hypertensive heart disease with heart failure (principal); J96.20 Acute and chronic respiratory failure, unspecified whether with hypoxia or hypercapnia; J96.10 Chronic respiratory failure, unspecified whether with hypoxia or hypercapnia; N17.9 Acute kidney failure, unspecified; I50.33 Acute on chronic diastolic (congestive) heart failure; R07.81 Pleurodynia; I48.91 Unspecified atrial fibrillation; J44.9 Chronic obstructive pulmonary disease, unspecified; E78.5 Hyperlipidemia, unspecified; Z99.81 Dependence on supplemental oxygen; Z90.710 Acquired absence of both cervix and uterus; Z95.0 Presence of cardiac pacemaker; R79.1 Abnormal coagulation profile; Z03.818 Encounter for observation for suspected exposure to other biological agents ruled out; Z87.891 Personal history of nicotine dependence; E21.5 Disorder of parathyroid gland, unspecified
CPT/HCPCS: 36415; 71045; 71260; 80048; 80053; 80061; 81001; 82550; 82553; 82805; 83735; 83880; 84443; 84484; 85025; 85610; 87635; 93306; 94640; 94660; 97139; 99285; G0378; J1885; J1940

== ENCOUNTER 2020-05-10 13:02 | Emergency (ER) | payer MEDICARE ==
[~2020-05-10] VITALS: Ht 149.9 cm; Wt 51.7 kg
[2020-05-10 13:37] LABS: BASOPHILS # (AUTO) 0.1 (0.0-0.1); BASOPHILS % 0.7 % (0.0-1.0); EOSINOPHILS # (AUTO) 0.1 (0.0-0.4); EOSINOPHILS % 1.8 % (0.0-6.0); HEMOGLOBIN 10.6 g/dL (12.0-16.0); LYMPHOCYTES # (AUTO) 0.4 (1.0-3.2); LYMPHOCYTES % 5.7 % (18.0-39.1); MEAN CORPUSCULAR HEMOGLOBIN 29.8 pg (28-32); MEAN CORPUSCULAR HGB CONC 29.4 g/dL (31-35); MEAN CORPUSCULAR VOLUME 101.1 fL (81-99); MONOCYTES # (AUTO) 0.6 (0.2-0.8); MONOCYTES % 8.3 % (4.4-11.3); NEUTROPHILS % 82.7 % (38.7-80.0); PLATELET COUNT 179 x10e3/uL (140-360); RED BLOOD COUNT 3.56 x10e6/uL (3.6-5.1); RED CELL DISTRIBUTION WIDTH 16.4 % (11.7-14.4)
[2020-05-10 13:56] LABS: CLARITY,URINE CLEAR (CLEAR); COLOR,URINE YELLOW (YELLOW)
[2020-05-10 13:57] LABS: BILIRUBIN,URINE NEGATIVE (NEGATIVE); KETONES,URINE NEGATIVE (NEGATIVE); LEUKOCYTE ESTERASE ,URINE NEGATIVE (NEGATIVE); NITRITE,URINE NEGATIVE (NEGATIVE); PROTEIN,URINE DIPSTICK NEGATIVE (NEGATIVE); URINE UROBILINOGEN 0.2 mg/dL (0.2 - 1)
[2020-05-10 13:57] LABS: ALANINE AMINOTRANSFERASE 81 IU/L (0-55); ALBUMIN 3.5 g/dL (3.5-5.0); ALBUMIN/GLOBULIN RATIO 0.8 (0.8-2.0); ALKALINE PHOSPHATASE 182 IU/L (40-150); ANION GAP 14.5 mmol/L (8-16); BLOOD UREA NITROGEN 12 mg/dL (7-26); BUN/CREATININE RATIO 16 (6-25); CALCIUM 9.3 mg/dL (8.4-10.2); CARBON DIOXIDE 29 mmol/L (22-29); CHLORIDE 99 mmol/L (98-107); CREATININE, SERUM 0.76 mg/dL (0.57-1.11); EST GLOMERULAR FILTRATION RATE > 60 ML/MIN (60-); GLUCOSE 105 mg/dL (74-118); POTASSIUM 3.5 mmol/L (3.5-5.1); SODIUM 139 mmol/L (136-145)
[2020-05-10 14:12] LABS: LIPASE 5 U/L (8-78)
[2020-05-10 14:13] LABS: BACTERIA,URINE RARE /HPF; EPITHELIAL CELLS,URINE FEW /LPF; RBC,URINE 0-5 /HPF (0-5); WBC,URINE (MAN) 0-5 /HPF (0-5)
[2020-05-10] MEDS ORDERED: IOPAMIDOL 370 MG/ML 200 ML INFUS..BTL INJ ONE (14:50)
[2020-05-10] MEDS ORDERED: SODIUM CHLORIDE 0.9% 50ML 50 ML ONE (14:50)
[2020-05-10] MEDS ORDERED: HYDROCODONE/APAP 5MG-325MG TAB PO ONE (15:15)
[2020-05-10] MEDS ORDERED: ALBUTEROL/IPRATROPIUM 3 ML NEB NEB ONE (19:15)
[2020-05-10 20:33] VITALS: BP 184/70
== END 2020-05-10 20:33 | disposition home or self-care (01) ==
LOC: ER 14:06
DX: M54.6 Pain in thoracic spine (principal); I10 Essential (primary) hypertension; E78.5 Hyperlipidemia, unspecified; J44.9 Chronic obstructive pulmonary disease, unspecified; I50.9 Heart failure, unspecified; I25.2 Old myocardial infarction; Z86.73 Personal history of transient ischemic attack (TIA), and cerebral infarction without residual deficits
CPT/HCPCS: 36415; 71045; 71260; 74177; 76705; 80053; 81001; 83690; 84484; 85025; 94640; 99284; Q9967